=== PATIENT | male | born 1940 | race Caucasian/White ===

== ENCOUNTER 2017-02-05 15:59 | Outpatient (CLI) | payer MEDICARE, OTHER | END 2017-02-05 16:00 | disposition home or self-care (01) | DX: Z79.899 Other long term (current) drug therapy (principal); K62.5 Hemorrhage of anus and rectum; H91.90 Unspecified hearing loss, unspecified ear; J30.2 Other seasonal allergic rhinitis; J44.9 Chronic obstructive pulmonary disease, unspecified; G47.33 Obstructive sleep apnea (adult) (pediatric); I25.10 Atherosclerotic heart disease of native coronary artery without angina pectoris; N40.0 Benign prostatic hyperplasia without lower urinary tract symptoms; E11.9 Type 2 diabetes mellitus without complications; E29.1 Testicular hypofunction; D64.9 Anemia, unspecified; F32.9 Major depressive disorder, single episode, unspecified ==

== ENCOUNTER 2017-04-30 14:51 | Outpatient (CLI) | payer MEDICARE, OTHER | END 2017-04-30 14:52 | disposition critical access hospital (66) | LOC: EMS 14:51 | PROVIDERS: ATTEND Surgery | DX: R53.1 Weakness (principal); R05 Cough | CPT/HCPCS: A0425; A0427 ==

== ENCOUNTER 2017-04-30 15:35 | Inpatient (IN) | payer MEDICARE, OTHER ==
--- NOTE | 2017-04-30 15:44 | ED Physician Documentation ---
PD HPI URI - Stated complaint Stated Complaint: BRONGHITIS - Chief complaint Chief Complaint: Resp - History obtained from History obtained from: Patient - History of Present Illness Timing - onset: Today (he has had cough with some wheezing and dyspnea for 2-3 weeks. Just finished Augmentin for 15 days. Had onset of some diarrhea just today. Had Prednisone for 3 days initially. Using nebulized albuterol and Pulmacort just the past 2 weeks (new meds for him, was just on Advair prior). Was moderately improved but still some cough. Now this morning feeling weaker, dyspnea, lightheaded.) Timing duration: Days (has been ill with cough and wheeze for over 2 weeks, with some improvement on meds/nebs but now increased cough again a day after abx done. Also with some diarrhea today. Feeling much worse today with general fatigue; no chest pain.) Timing details: Abrupt onset (felt much worse today, with cough worse too.), Still present Associated symptoms: Chills, Nasal congestion, Productive cough, Dyspnea, Bilateral edema. No: Fever, Sore throat, NVD Contributing factors: COPD / asthma. No: Sick contact, Travel, Immunocompromised Similar symptoms before: Diagnosis (bronchitis (no hisotry of atrial fib/flutter , though).) Recently seen: Clinic (2 weeks ago for bronchitis with wheezing.) Review of Systems Constitutional: reports: Chills, Myalgias. denies: Fever Nose: reports: Congestion. denies: Rhinorrhea / runny nose Throat: denies: Sore throat Cardiac: reports: Pedal edema. denies: Chest pain / pressure, Palpitations, Calf pain Respiratory: reports: Dyspnea, Cough, Wheezing GI: denies: Abdominal Pain, Nausea, Vomiting, Diarrhea : denies: Dysuria, Frequency Neurologic: reports: Generalized weakness. denies: Focal weakness, Numbness, Near syncope, Altered mental status, Headache Endocrine: denies: Weight loss, Easy bruising / bleeding Immunocompromised: denies: Immunocompromised PD PAST MEDICAL HISTORY - Past Medical History Cardiovascular: Hypertension, High cholesterol, Coronary artery disease, Angina Respiratory: Shortness of breath, Sleep apnea, Other Neuro: TIA Endocrine/Autoimmune: Type 2 diabetes GI: GERD, GI bleed : Benign prostate hypertrophy, Incontinence, Frequency HEENT: Macular degeneration, Chronic hearing loss Psych: None Musculoskeletal: Osteoarthritis, Chronic back pain, Other Derm: Eczema - Past Surgical History Past Surgical History: Yes Ortho: Spine surgery Cardiovascular: CABG HEENT: Cataracts Derm: Skin cancer surgery - Present Medications Home Medications: Ambulatory Orders Medication Instructions Recorded Confirmed Clopidogrel [Plavix] 75 mg ORAL DAILY 09/09/13 04/30/17 Doxazosin [Cardura] 12 mg PO HS 09/09/13 04/30/17 Ferrous Sulfate [Iron Supplement] 325 mg PO DAILY 09/09/13 04/30/17 Finasteride 5 mg PO DAILY 09/09/13 04/30/17 Insulin 70/30 Human [NovoLIN] 57 units BID 09/09/13 04/30/17 Lisinopril 10 mg ORAL DAILY 09/09/13 04/30/17 Loratadine [Claritin] 10 mg HS 09/09/13 04/30/17 Metoprolol Succinate 50 mg PO BID 09/09/13 04/30/17 Omeprazole [PriLOSEC] 20 mg PO BID 09/09/13 04/30/17 Oxycodone HCl [Oxycontin] 10 mg PO BID 09/09/13 04/30/17 Pioglitazone [Actos] 45 mg PO DAILY 09/09/13 04/30/17 Pyridostigmine [place] [Mestinon] 60 mg PO TID 09/09/13 04/30/17 Simvastatin [Zocor] 40 mg PO QPM 09/09/13 04/30/17 Tocopheryl [Vitamin E] 800 units DAILY 09/09/13 04/30/17 Lidocaine Patch 5% [Lidoderm Patch] 1 each TOP DAILY 03/31/14 04/30/17 Sertraline HCl [Zoloft] 50 mg PO DAILY 03/31/14 04/30/17 Triamterene/Hdyrochlor 37.5/25 1 each PO DAILY 03/31/14 04/30/17 [Dyazide] Fluticasone/Salmeterol [Advair 0 mg BID 04/30/17 04/30/17 100-50 Diskus] oxyCODONE ER [OxyCONTIN] 10 mg PO QID PRN 04/30/17 04/30/17 - Allergies Allergies/Adverse Reactions: Allergies Allergy/AdvReac Type Severity Reaction Status Date / Time NSAIDS (Non-Steroidal AdvReac Intermediate GI Bleed Verified 04/30/17 15:42 Anti-Inflamma - Social History Does the pt smoke?: No Smoking Status: Former smoker Does the pt drink ETOH?: No Does the pt have substance abuse?: No - Family History Family history: reports: Non contributory - Immunizations Immunizations are current?: Yes - POLST Patient has POLST: Yes POLST Status: Full Code PD ED PE NORMAL - Vitals Vital signs reviewed: Yes - General General: Alert and oriented X 3, No acute distress, Well developed/nourished - HEENT HEENT: Atraumatic, Ears normal, Pharynx benign - Neck Neck: Supple, no meningeal sign, No adenopathy - Cardiac Cardiac: No murmur. No: RRR (fast rate 125-130 with some irregularity. No murmur nor rub. ) - Respiratory Respiratory: No: Clear bilaterally (diffuse wheezing, without retractions. Some coarse sounds left base. ) - Abdomen Abdomen: Normal bowel sounds, Soft, Non tender, Non distended, No organomegaly - Male Male : Deferred - Rectal Rectal: Deferred - Back Back: No CVA TTP - Derm Derm: Normal color, Warm and dry, No rash - Extremities Extremities: No tenderness to palpate, Normal ROM s pain, No calf tenderness / cord, Other (1+ edema in both legs.) - Neuro Neuro: Alert and oriented X 3, casket trimmer 2-12 intact, No motor deficit, No sensory deficit, Normal speech - Psych Psych: Normal mood, Normal affect Results - Vitals Vitals: Vital Signs - 24 hr 04/30/17 04/30/17 04/30/17 15:35 16:00 16:30 Temperature 37.4 C Heart Rate 115 H 125 H 128 H Respiratory 20 22 20 Rate Blood Pressure 126/71 120/62 131/73 H O2 Saturation 94 94 96 04/30/17 04/30/17 04/30/17 17:30 17:45 18:04 Temperature Heart Rate 130 H 129 H 114 H Respiratory 20 26 H 18 Rate Blood Pressure 113/65 113/68 124/60 O2 Saturation 95 93 95 Oxygen O2 Source [With Activity] Room air O2 Source Room air - Labs Labs: Laboratory Tests 04/30/17 04/30/17 04/30/17 17:15 17:15 17:15 WBC 15.1 H RBC 4.89 Hgb 14.6 Hct 45.4 MCV 92.7 MCH 29.9 MCHC 32.3 RDW 14.7 Plt Count 171 MPV 7.5 Neut # 14.1 H Lymph # 0.4 L [place] # 0.6 Eos # 0.0 Baso # 0.0 Absolute Nucleated RBC 0.02 Nucleated RBCs 0.1 Manual Slide Review Indicated Platelet Estimate NORMAL (130-450,000) RBC Morph Micro Appear NORMAL APPEARANCE Sodium 136 Potassium 4.3 Chloride 98 L Carbon Dioxide 24 Anion Gap 14.0 H BUN 24 H Creatinine 1.3 H Estimated GFR (MDRD) 54 L Glucose 246 H Lactic Acid Calcium 8.9 Magnesium 1.6 L Total Bilirubin 1.0 AST 29 ALT 24 Alkaline Phosphatase 59 Troponin I < 0.04 B-Natriuretic Peptide Total Protein 7.6 Albumin 4.4 Globulin 3.2 Albumin/Globulin Ratio 1.4 Lipase 23 04/30/17 04/30/17 17:15 17:15 WBC RBC Hgb Hct MCV MCH MCHC RDW Plt Count MPV Neut # Lymph # [place] # Eos # Baso # Absolute Nucleated RBC Nucleated RBCs Manual Slide Review Platelet Estimate RBC Morph Micro Appear Sodium Potassium Chloride Carbon Dioxide Anion Gap BUN Creatinine Estimated GFR (MDRD) Glucose Lactic Acid 2.5 H Calcium Magnesium Total Bilirubin AST ALT Alkaline Phosphatase Troponin I B-Natriuretic Peptide 23 Total Protein Albumin Globulin Albumin/Globulin Ratio Lipase PD MEDICAL DECISION MAKING - ED course Complexity details: considered differential (heart rate slows to about 100-105 with Metoprolol. Given IV fluids and neb treatment. Has been on Augmentin and has symptoms bronchitis, and now infiltrate on CXR, so will given Levaquin. He is appearing ill and has new atrial fib with fast rate too. ), d/w patient, d/w retirement sales consultant ([employer] - hospitalist) Departure - Departure Disposition: 66 [facility] DC/Xfer Clinical Impression: Atrial fibrillation with RVR Pneumonia Qualifiers: Pneumonia type: due to unspecified organism Laterality: right Lung location: lower lobe of lung Qualified Code(s): J18.1 - Lobar pneumonia, unspecified organism Dyspnea Qualifiers: Dyspnea type: shortness of breath Qualified Code(s): R06.02 - Shortness of breath Condition: Stable Record reviewed to determine appropriate education?: Yes Discharge Date/Time: 04/30/17 19:10
[2017-04-30] MEDS ORDERED: SODIUM CHLORIDE 0.9% 500 ML IV ONE (16:10)
[2017-04-30] MEDS ORDERED: IPRATROPIUM/ALBUTEROL 3 ML NEB INH STA (16:10)
[2017-04-30] MEDS ORDERED: IPRATROPIUM/ALBUTEROL 3 ML NEB INH ONE (16:21)
[2017-04-30] MEDS ORDERED: METOPROLOL 5 MG/5 ML VIAL IVP STA ×2 (17:03→18:02)
[2017-04-30 17:33] LABS: BASOPHILS % (AUTO) 0.2 %; EOSINOPHILS % (AUTO) 0.2 %; HCT - HEMATOCRIT 45.4 % (42.0-52.0); HGB - HEMOGLOBIN 14.6 g/dL (14.0-18.0); LYMPHOCYTES # (AUTO) 0.4 10^3/uL (1.5-3.5); LYMPHOCYTES % (AUTO) 2.6 %; MEAN CORPUSCULAR HEMOGLOBIN 29.9 pg (27.0-31.0); MEAN CORPUSCULAR HGB CONC 32.3 g/dL (32.0-36.0); MEAN CORPUSCULAR VOLUME 92.7 fL (80.0-94.0); MEAN PLATELET VOLUME 7.5 fL (7.4-11.4); MONOCYTES # (AUTO) 0.6 10^3/uL (0.0-1.0); MONOCYTES % (AUTO) 3.8 %; NEUTROPHILS # (AUTO) 14.1 10^3/uL (1.5-6.6); NEUTROPHILS % (AUTO) 93.2 %; NUCLEATED RED BLOOD CELLS AUTO 0.1 /100WBC; RED BLOOD COUNT 4.89 10^6/uL (4.70-6.10); RED CELL DISTRIBUTION WIDTH 14.7 % (12.0-15.0); UNCORRECTED WHITE BLOOD COUNT 15.1 x10^3/uL; WHITE BLOOD COUNT 15.1 x10^3/uL (4.8-10.8)
[2017-04-30] MEDS ORDERED: METOPROLOL 5 MG/5 ML VIAL IVP ONE ×2 (17:36→18:12)
[2017-04-30 17:40] LABS: ALBUMIN/GLOBULIN RATIO 1.4 (1.0-2.2); CALCIUM 8.9 mg/dL (8.5-10.3); CREATININE 1.3 mg/dL (0.6-1.2); MAGNESIUM 1.6 mg/dL (1.7-2.8); POTASSIUM 4.3 mmol/L (3.5-5.0); TOTAL PROTEIN 7.6 g/dL (6.7-8.2)
--- NOTE | 2017-04-30 17:50 | XRAY Preliminary Report ---
Exam: XR Chest 2 View PA/LAT IMPRESSION: 1. Small right posterior lung base infiltrate. 2. Mild cardiomegaly. [facility] SITE ID: [id number]
--- NOTE | 2017-04-30 17:55 | XRAY Report ---
EXAM: CHEST RADIOGRAPHY EXAM DATE: 04/30/2017 05:34 PM. CLINICAL HISTORY: Cough worse, after 2 weeks abx. COMPARISON: 08/21/2016. TECHNIQUE: 2 views. FINDINGS: Lungs/Pleura: New subsegmental airspace infiltrate posterior basilar segment right lower lobe.. No pl eural effusion. No pneumothorax. Normal volumes. Mediastinum: Remote sternotomy, CABG. Heart remains mildly enlarged. No adenopathy. Other: None. IMPRESSION: 1. Small right posterior lung base infiltrate. 2. Mild cardiomegaly. [facility] Referring Provider Line: [phone] SITE ID: [id number]
[2017-04-30 18:00] LABS: PLATELET ESTIMATE, MANUAL NORMAL (130-450,000) (NORMAL)
[2017-04-30] MEDS ORDERED: IPRATROPIUM 0.2 MG/ML NEB INH PRN (18:14)
[2017-04-30] MEDS ORDERED: MAGNESIUM SULFATE 2 GRAM 50 ML IV SCH (19:00)
[2017-04-30] MEDS ORDERED: oxyCODONE ER 10 MG TABLET PO PRN (19:13)
[2017-04-30 19:28] LABS: HEMOGLOBIN A1C 1.01 g/dL
[2017-04-30] MEDS: IPRATROPIUM/ALBUTEROL 3 ML NEB INH SCH (19:45)
[2017-04-30] MEDS: DOXAZOSIN 4 MG TABLET PO SCH ×2 (20:16→21:04)
--- NOTE | 2017-04-30 20:19 | HISTORY & PHYSICAL EXAMINATION ---
DATE OF ADMISSION: 04/30/2017 PRIMARY CARE PROVIDER: Dr. Stacey Thao. CHIEF COMPLAINT: Weakness, shortness of breath, cough, general aches and malaise for 2 weeks. HISTORY OF PRESENT ILLNESS: The patient is a 76-year-old morbidly obese gentleman with longstanding h istory of diabetes, CHF, myasthenia gravis, GI bleed, hyperlipidemia, hypertension, CHF, and prior TI As that presented to the ER with a complaint of 2 weeks of general malaise, cough, possible fever, we akness and shortness of breath. The patient states that he has been feeling generally poor over the l ast couple days, more tired and lethargic than normal. His blood sugars have been slightly elevated a nd he has had a significant cough that has produced a good amount of sputum over the last several day s. Today, he states the symptoms became worse. He is not sure whether he has a fever, but he has had some chills and some shakes. He has not had much of an appetite. He has had pneumonia in the past. He thinks that may be what he has again. He has had shortness of breath with exertion. So he came to th e ER for further evaluation. While in the ER, he was found to have an elevated white count at 15.1 wi th possible left shift. Also, lactic acid of 2.5, magnesium 1.6, and acute kidney injury with mild de hydration. The patient was negative for first troponin and BNP was at 23 and not in congestive heart failure at this time. Chest x-ray did report possible bibasilar infiltrate in the posterior segment o f the right lower lobe. No pleural effusion, pneumothorax. The patient will be admitted inpatient for sepsis as he does meet criteria with elevated heart rate 115 and respirations at 26, and temperature 37.4 temporal. The patient was started on Rocephin and azithromycin while in the ER. ALLERGIES: NO KNOWN ALLERGIES EXCEPT HE HAS AN ADVERSE REACTION TO NSAIDS. HOME MEDICATIONS: 1. Actos. 2. Advair. 3. Cardura. 4. Claritin. 5. Dyazide. 6. Finasteride. 7. Iron supplement. 8. Lidocaine patch. 9. Lisinopril. 10. Mestinon. 11. Metoprolol succinate. 12. Novolin 70/30, 57 units b.i.d.. 13. OxyContin. 14. Plavix. 15. Prilosec. 16. Vitamin D.. 17. Zocor 18. Zoloft. PAST MEDICAL HISTORY: Significant for hypertension, diabetes, congestive heart failure, unspecified, myasthenia gravis, BPH, GERD, chronic back pain with osteoarthritis, TIAs and atherosclerotic heart d isease with CABG x3 vessel bypass. PAST SURGICAL HISTORY: Includes CABG. SOCIAL HISTORY: The patient is to his , he was a former smoker and does not drink any alc ohol and denies illicit drug usage. FAMILY HISTORY: Both parents were obese, they did have significant hypertension and diabetes. REVIEW OF SYSTEMS: Ten systems have been reviewed and is negative with exception as discussed in the HPI prior. He is negative for chest pain, numbness to extremities. He is positive for fever, chills, sweats, general malaise and weakness. PHYSICAL EXAMINATION: VITAL SIGNS: Temperature is 37.4, pulse is 115, blood pressure is 134/68, respirations 26, pulse oxim etry is 92% on room air. GENERAL: The patient is obese, pleasant, in no acute distress. EYES: Pupils equal, round and react to light and accommodation. Conjunctivae and sclerae are nonicter ic, not injected. ENT: Nares are patent, mild nasal discharge. Mucous membranes are moist. Trachea is midline. NECK: Supple. No thyromegaly. RESPIRATORY: Expiratory slight wheezes mid to lower lobes. No retractions, nasal flaring, or increase d work of breathing. CARDIOVASCULAR: Regular rate atrial fibrillation with no murmurs, gallops or rubs. Normal PMI. No JVD . GASTROINTESTINAL: Abdomen is obese, soft, nontender, bowel sounds are noted. No hepatosplenomegaly. MUSCULOSKELETAL: Extremities: The patient has noted foot drop to left foot. No cyanosis. Pulses are p alpable to upper and lower extremities. NEUROLOGIC: The patient is alert, GCS 15. Cranial nerves 2 through 7 grossly intact. He does have lef t-sided facial weakness with myasthenia gravis. SKIN: Warm, dry, intact. Normal turgor. No evidence of rash, lesions, or cellulitis. HEMATOLOGIC: No active bleeding. The patient is hemodynamically stable. LYMPHATICS: No cervical, axillary, supraclavicular lymphadenopathy is noted. GENITOURINARY: No CVA tenderness. No masses palpated. No bladder distention. LABORATORY AND DIAGNOSTIC DATA: I personally reviewed all laboratory and diagnostic data in the medic al records for 04/30/2017 and results are as follows: LABORATORY: Chloride 98, sodium 136, potassium 4.3, anion gap 14, BUN 24, creatinine 1.3, glucose 246 . Lactic acid 2.4, magnesium 1.6. BNP is 23.0, 0.04 troponin, WBC is 15.1, neutrophil percentage 14.1 , lymphocytes 0.4, hemoglobin is 14.6. DIAGNOSTICS: CHEST X-ray shows bibasilar left lower lobe possible infiltrate. EKG shows sinus tachycardia, rate 115, no signs of ischemia or infarct. ASSESSMENT: 1. Acute febrile illness with sepsis secondary to left lower lobe community-acquired pneumonia, unkno wn causal organism. 2. Morbid obesity with BMI greater than 45. 3. Insulin-dependent diabetes mellitus type 2 with multiple comorbidities and chronic kidney disease, stage III. 4. Atherosclerotic heart disease of [place] coronary artery with coronary artery bypass grafting. 5. Hypertensive heart disease with congestive heart failure, unspecified ejection fraction. 6. Myasthenia gravis with chronic back pain to lumbosacral region. 7. Chronic anemia, probably iron deficiency. 8. Nicotine dependence, cigarettes, in remission. PLAN: 1. Admit the patient inpatient. Sepsis workup and protocol. The patient was started on Rocephin in e ER and will continue and add azithromycin. 2. Blood cultures pending. 3. Sputum culture pending. 4. Respiratory therapy support with DuoNeb treatments, Xopenex if heart rate greater than 120. Supple mental oxygen 2 liters nasal cannula to keep saturating greater than 92%. 5. Diabetes, managed with home insulin dosage and sliding scale insulin, diabetic diet and hemoglobin A1c requested. 6. Continue the patient on home medication for hypertension including metoprolol. We will hold lisino pril due to the acute kidney injury. 7. Continue Zocor. Lipid profile has been requested. 8. Continue omeprazole proton pump inhibitor for gastrointestinal reflux disease. 9. Continue on ferrous sulfate 325 p.o. daily. Iron studies requested. 10. Continue multivitamin. 11. Continue on pyridostigmine 60 mg 2 times a day for myasthenia gravis. 12. Continue on Zoloft for depression and continue on Plavix for status post CABG and continue lidoca ine patches for pain. Continue on OxyContin for chronic back pain and continue with Actos for diabete s. 13. Deep venous thrombosis prophylaxis with SCDs and Lovenox. 14. CODE STATUS: THE PATIENT IS A FULL CODE STATUS. Time spent on evaluation at admission and assessment with the patient was 45 minutes. The patient has been admitted as inpatient, he is high risk for worsening comorbidities, he will require at least 2 midnight stay and require IV medications with high risk for toxicity. Additional diagnostics and code status was addressed at bedside. JOB #: [id number] EXT JOB #:[id number]
[2017-04-30] MEDS: oxyCODONE ER 10 MG TABLET PO SCH (20:21)
[2017-04-30] MEDS ORDERED: SIMVASTATIN 40 MG PO SCH (21:00)
[2017-04-30] MEDS ORDERED: NON FORMULARY MED (Omeprazole [Prilosec] 20 MG) PO SCH (21:00)
[2017-04-30] MEDS ORDERED: INSULIN 70/30 HUMAN 100 UNIT/1 ML 10 ML MDV SUBQ SCH (21:00)
[2017-04-30] MEDS: PANTOPRAZOLE 40 MG TABLET PO SCH (21:34)
[2017-04-30] MEDS: METOPROLOL SUCCINATE 50 MG TABLET PO SCH (21:34)
[2017-04-30] MEDS: INSULIN 70/30 HUMAN 100 UNIT/1 ML 10 ML MDV SUBQ SCH (22:01)
[2017-04-30] MEDS: INSULIN ASPART 300 UNIT/3 ML PEN SUBQ SCH (22:01)
[2017-04-30] MEDS: PYRIDOSTIGMINE BROMIDE 60 MG TABLET PO SCH (22:02)
[2017-05-01] MEDS ORDERED: FLUTICASONE NASAL SPRAY NAS SCH
[2017-05-01] MEDS: oxyCODONE 5 MG TABLET PO PRN ×4 (00:21→14:44)
[2017-05-01] MEDS: FLUTICASONE NASAL SPRAY NAS SCH ×3 (04:21→21:49)
[2017-05-01 06:03] LABS: BASOPHILS % (AUTO) 0.2 %; EOSINOPHILS % (AUTO) 0.2 %; HCT - HEMATOCRIT 39.5 % (42.0-52.0); HGB - HEMOGLOBIN 13.1 g/dL (14.0-18.0); LYMPHOCYTES # (AUTO) 1.1 10^3/uL (1.5-3.5); LYMPHOCYTES % (AUTO) 10.7 %; MEAN CORPUSCULAR HEMOGLOBIN 30.7 pg (27.0-31.0); MEAN CORPUSCULAR HGB CONC 33.2 g/dL (32.0-36.0); MEAN CORPUSCULAR VOLUME 92.3 fL (80.0-94.0); MEAN PLATELET VOLUME 7.4 fL (7.4-11.4); MONOCYTES # (AUTO) 0.9 10^3/uL (0.0-1.0); MONOCYTES % (AUTO) 9.6 %; NEUTROPHILS # (AUTO) 7.8 10^3/uL (1.5-6.6); NEUTROPHILS % (AUTO) 79.3 %; NUCLEATED RED BLOOD CELLS AUTO 0.1 /100WBC; RED BLOOD COUNT 4.28 10^6/uL (4.70-6.10); RED CELL DISTRIBUTION WIDTH 14.8 % (12.0-15.0); UNCORRECTED WHITE BLOOD COUNT 9.8 x10^3/uL; WHITE BLOOD COUNT 9.8 x10^3/uL (4.8-10.8)
[2017-05-01 06:11] LABS: CALCIUM 8.3 mg/dL (8.5-10.3); CREATININE 1.4 mg/dL (0.6-1.2); PHOSPHORUS 2.2 mg/dL (2.5-4.6); POTASSIUM 3.6 mmol/L (3.5-5.0)
[2017-05-01] MEDS: PYRIDOSTIGMINE BROMIDE 60 MG TABLET PO SCH ×3 (07:19→22:17)
[2017-05-01] MEDS: INSULIN ASPART 300 UNIT/3 ML PEN SUBQ SCH ×4 (07:53→21:49)
[2017-05-01] MEDS: INSULIN 70/30 HUMAN 100 UNIT/1 ML 10 ML MDV SUBQ SCH ×2 (08:02→21:48)
[2017-05-01] MEDS: PANTOPRAZOLE 40 MG TABLET PO SCH ×2 (08:35→21:47)
[2017-05-01] MEDS: SERTRALINE 50 MG TABLET PO SCH (08:35)
[2017-05-01] MEDS: FINASTERIDE 5 MG TABLET PO SCH (08:36)
[2017-05-01] MEDS: FERROUS SULFATE 325 MG TABLET PO SCH (08:36)
[2017-05-01] MEDS: METOPROLOL SUCCINATE 50 MG TABLET PO SCH ×2 (08:36→21:47)
[2017-05-01] MEDS: oxyCODONE ER 10 MG TABLET PO SCH ×2 (08:36→21:43)
[2017-05-01] MEDS: LIDOCAINE PATCH 5% TOP SCH (08:39)
[2017-05-01] MEDS: ATORVASTATIN 10 MG TABLET PO SCH (08:39)
[2017-05-01] MEDS: SACCHAROMYCES BOULARDII 250 MG CAPSULE PO SCH ×2 (08:40→17:29)
[2017-05-01] MEDS: ENOXAPARIN 40 MG/0.4 ML SYRINGE SUBQ SCH (08:40)
--- NOTE | 2017-05-01 08:42 | PROVIDER PROGRESS NOTE ---
Assessment/Plan - Problem List (1) Sepsis due to other etiology Assessment/Plan: acute. patient WBC improving. he is receiving levaquin IV an received Rocephin and azithromycin IV. discontinued azithromycin.He has been afebrile today. His oxygen level is stable. continue with RT treatments and encourage ambulation with nursing. monitor for WBC changes. blood cultures pending. sputum culture pending. (2) Acute kidney injury superimposed on CKD Assessment/Plan: ongoing. continue with IVF NS and monitor for edema and crackle in the lungs. monitor electrolytes and kidney function with daily labs. avoid nephrotoxic medications. (3) Low blood magnesium level Assessment/Plan: resolving. replete magnesium and monitor level in daily labs (4) Low serum phosphorus for age Assessment/Plan: acute. added neutraphos oral three time daily and recheck phosphorus level with daily labs (5) Insulin dependent diabetes mellitus with complications Assessment/Plan: chronic. continue on diabetic diet, lantus, sliding scale insulin and A1C ordered. (6) Atrial fibrillation with RVR Assessment/Plan: chronic. stable. teleemetry and continue on blood pressure medications for AFib home dosages (7) Obstructive sleep apnea hypopnea, severe Assessment/Plan: chronic. continue with CPAP and RT support as needed (8) Morbid (severe) obesity due to excess calories Assessment/Plan: chronic. continue with nutrition support, low calorie diabetic diet and ambulation - Current Meds Current Meds: Current Medications Generic Name Dose Route Start Last Admin Trade Name Freq PRN Reason Stop Dose Admin Albuterol/Ipratropium 3 ml 04/30/17 19:00 04/30/17 19:45 Duoneb INH 05/01/17 18:59 3 ml RTQID SHOAIB Administration Doxazosin Mesylate 12 mg 04/30/17 19:00 04/30/17 21:04 Cardura PO Not Given HS SHOAIB Fluticasone Propionate 1 sprays 05/01/17 04:15 05/01/17 04:21 Flonase NIMA 1 spray BID SHOAIB Administration Insulin Aspart 1 - 9 unit 04/30/17 21:00 05/01/17 07:53 Novolog SUBQ Not Given 0800,1200,1700,2100 [facility] Protocol Insulin Human Isoph/Insulin Regular 57 unit 04/30/17 21:00 05/01/17 08:02 Novolin SUBQ 57 unit BID SHOAIB Administration Metoprolol Succinate 50 mg 04/30/17 21:00 04/30/17 21:34 Toprol Xl PO 50 mg BID SHOAIB Administration Oxycodone HCl 10 mg 04/30/17 21:00 04/30/17 20:21 Oxycontin PO 10 mg BID SHOAIB Administration Oxycodone HCl 10 mg 04/30/17 20:07 05/01/17 03:58 Roxicodone PO 10 mg QID PRN Administration PAIN Pantoprazole Sodium 40 mg 04/30/17 21:00 04/30/17 21:34 Protonix PO 40 mg BID SHOAIB Administration Pyridostigmine Velva 60 mg 04/30/17 22:00 05/01/17 07:19 Mestinon PO Not Given TID SHAOIB - Lab Result Lab results reviewed: Yes Fish Bone Diagrams: 05/01/17 05:20 05/01/17 05:20 Other Lab Results: Abnormal Lab Results 04/30/17 04/30/17 04/30/17 17:15 17:15 17:15 WBC 15.1 x10^3/uL H x10^3/uL (4.8-10.8) RBC Hgb Hct Neut # 14.1 10^3/uL H 10^3/uL (1.5-6.6) Lymph # 0.4 10^3/uL L 10^3/uL (1.5-3.5) Chloride 98 mmol/L L mmol/L (101-111) Anion Gap 14.0 H (6-13) BUN 24 mg/dL H mg/dL (6-20) Creatinine 1.3 mg/dL H mg/dL (0.6-1.2) Estimated GFR (MDRD) 54 L (>89) Glucose 246 mg/dL H mg/dL (70-100) Glycated Hemoglobin Estim Average Glucose Lactic Acid 2.5 mmol/L H mmol/L (0.5-2.2) Calcium Phosphorus Magnesium 1.6 mg/dL L mg/dL (1.7-2.8) C-Reactive Protein 04/30/17 04/30/17 04/30/17 18:29 19:40 19:40 WBC RBC Hgb Hct Neut # Lymph # Chloride Anion Gap BUN Creatinine Estimated GFR (MDRD) Glucose Glycated Hemoglobin 8.3 % H % (4.6-6.2) Estim Average Glucose 192 H (70-100) Lactic Acid Calcium Phosphorus 2.4 mg/dL L mg/dL (2.5-4.6) Magnesium C-Reactive Protein 2.4 mg/dL H mg/dL (0-1.0) 05/01/17 05/01/17 05:20 05:20 WBC RBC 4.28 10^6/uL L 10^6/uL (4.70-6.10) Hgb 13.1 g/dL L g/dL (14.0-18.0) Hct 39.5 % L % (42.0-52.0) Neut # 7.8 10^3/uL H 10^3/uL (1.5-6.6) Lymph # 1.1 10^3/uL L 10^3/uL (1.5-3.5) Chloride 100 mmol/L L mmol/L (101-111) Anion Gap BUN 27 mg/dL H mg/dL (6-20) Creatinine 1.4 mg/dL H mg/dL (0.6-1.2) Estimated GFR (MDRD) 49 L (>89) Glucose Glycated Hemoglobin Estim Average Glucose Lactic Acid Calcium 8.3 mg/dL L mg/dL (8.5-10.3) Phosphorus 2.2 mg/dL L mg/dL (2.5-4.6) Magnesium C-Reactive Protein - EKG Results EKG Interpreted Independently: No - Diagnostic Imaging Results Diagnostic Imaging Results: positive: Prelim report reviewed - Additional Planning Condition/Complexity: Improved (Patient will need additional nights between 24- 48 hours since he is needed medications IV and is at high risk for worssening morbidities and risk for toxicity. He will need cardiac monitoring and code status addressed at bedside) My Orders: My Active Orders 04/30/17 18:11 Blood Glucose Checks - Eating [RC] 0800,1200,1700,2100 Initiate Hypoglycemia Protocol [RC] .protocol Nutrition Consult [CONS] Routine 04/30/17 18:14 Albuterol 2.5 mg INH Q2HR PRN Ipratropium [Atrovent] 0.5 mg INH RTQ4H PRN 04/30/17 18:16 CUL, RESPIRATORY [RM] Routine 04/30/17 19:00 Doxazosin [Cardura] 12 mg PO HS Ipratropium/Albuterol [Duoneb] 3 ml INH RTQID 04/30/17 19:40 CULTURE, BLOOD (NOTE DRAW #) [RM] Routine 04/30/17 21:00 Insulin Aspart [NovoLOG] 1 - 9 unit SUBQ 0800,1200,1700,2100 Metoprolol Succinate [Toprol Xl] 50 mg PO BID Pantoprazole [Protonix] 40 mg PO BID oxyCODONE ER [OxyCONTIN] 10 mg PO BID 04/30/17 22:00 Pyridostigmine Velva [Mestinon] 60 mg PO TID 04/30/17 23:27 Oxygen Therapy [RC] .PRN 04/30/17 23:33 RT [Home CPAP/BiPAP] [RC] .ONCE 05/01/17 08:00 Saccharomyces Boulardii [Florastor] 250 mg PO BIDWM 05/01/17 08:40 MAGNESIUM [CHEM] Stat 05/01/17 09:00 Atorvastatin [Lipitor] 20 mg PO DAILY Clopidogrel [Plavix] 75 mg PO DAILY Ferrous Sulfate [Feosol] 325 mg PO DAILY Finasteride [Proscar] 5 mg PO DAILY Neutra-Phos [K-Phos Neutral] 250 mg PO TIDWM Sertraline [Zoloft] 50 mg PO DAILY cefTRIAXone [Rocephin] 2 gm Sodium Chloride 0.9% Minibag [Normal Saline 0.9% Minibag] 100 ml IV DAILY 05/01/17 10:00 Azithromycin Inj [Zithromax Inj] 500 mg Sodium Chloride 0.9% [Normal Saline 0.9%] 250 ml IV DAILY@1000 05/01/17 20:00 levoFLOXacin 750 MG/150 ML [Levaquin 750 mg/150 ml] 150 ml IV Q24H 05/02/17 05:00 BMP - BASIC METABOLIC PANEL [CHEM] DAILYLAB CBC - COMP BLD CT W/AUTO DIFF [HEME] DAILYLAB PHOSPHORUS [CHEM] DAILYLAB 05/03/17 05:00 BMP - BASIC METABOLIC PANEL [CHEM] DAILYLAB CBC - COMP BLD CT W/AUTO DIFF [HEME] DAILYLAB Consult/Specialty: OT, PT Plan Discussed with:: Patient, Case Management Time Spent: 31-60 minutes Subjective - Subjective Patient Reports: Resting Comfortably, Back Pain, Fatigue, Shortness of Breath Nursing Reports: Shortness of Breath (patient feeling weak this morning. up with nursing today. no nausea or vomiting today.no fever or chills better mood) Objective Vital Signs: Vital Signs - 24 hr 04/30/17 04/30/17 04/30/17 18:15 18:35 18:45 Temperature Heart Rate 124 H 108 H 113 H Heart Rate [ Brachial] Heart Rate [ Monitoring electrodes] Respiratory 22 20 22 Rate Blood Pressure 111/74 132/75 H Blood Pressure [Left Brachial artery] Blood Pressure [Left Radial artery] O2 Saturation 96 95 04/30/17 04/30/17 04/30/17 18:58 19:30 19:45 Temperature 36.7 C Heart Rate 130 H 115 H Heart Rate [ Brachial] Heart Rate [ 115 H Monitoring electrodes] Respiratory 22 16 18 Rate Blood Pressure 143/75 H Blood Pressure 129/81 H [Left Brachial artery] Blood Pressure [Left Radial artery] O2 Saturation 95 96 04/30/17 05/01/17 05/01/17 23:30 04:20 07:44 Temperature 36.7 C 36.8 C Heart Rate Heart Rate [ 127 H Brachial] Heart Rate [ 128 H 123 H Monitoring electrodes] Respiratory 18 18 Rate Blood Pressure Blood Pressure 106/61 108/68 [Left Brachial artery] Blood Pressure 121/80 [Left Radial artery] O2 Saturation 96 96 Oxygen O2 Source Room air I&O (Last 24 Hrs): Intake and Output Totals x24h 04/29/17 04/30/17 05/01/17 23:59 23:59 23:59 Intake Total 1000 1500 Balance 1000 1500 General: Alert, Oriented x3, Cooperative, No acute distress HEENT: PERRLA Neck: Supple, No JVD, No thyromegaly Lymphatic: no adenopathy Neuro: Alert, CN 2-12 Grossly Intact, Oriented Times 3 Cardiovascular: Regular rate (AFib rhythym), Normal S1, Normal S2 Respiratory: Chest non-tender, No respiratory distress, Wheezes Abdomen: Normal bowel sounds, Soft, Other (obese) Rectal: Stool - Heme NEG Extremities: No clubbing, No cyanosis, Other (edema to bilateral lower extremities) Skin: No rashes, No breakdown, No significant lesion - Results Results: Laboratory Results WBC 9.8 x10^3/uL (4.8-10.8) 05/01/17 05:20 RBC 4.28 10^6/uL (4.70-6.10) L 05/01/17 05:20 Hgb 13.1 g/dL (14.0-18.0) L 05/01/17 05:20 Hct 39.5 % (42.0-52.0) L 05/01/17 05:20 MCV 92.3 fL (80.0-94.0) 05/01/17 05:20 MCH 30.7 pg (27.0-31.0) 05/01/17 05:20 MCHC 33.2 g/dL (32.0-36.0) 05/01/17 05:20 RDW 14.8 % (12.0-15.0) 05/01/17 05:20 Plt Count 159 10^3/uL (130-450) 05/01/17 05:20 MPV 7.4 fL (7.4-11.4) 05/01/17 05:20 Neut # 7.8 10^3/uL (1.5-6.6) H 05/01/17 05:20 Lymph # 1.1 10^3/uL (1.5-3.5) L 05/01/17 05:20 [place] # 0.9 10^3/uL (0.0-1.0) 05/01/17 05:20 Eos # 0.0 10^3/uL (0.0-0.7) 05/01/17 05:20 Baso # 0.0 10^3/uL (0.0-0.1) 05/01/17 05:20 Absolute Nucleated RBC 0.01 x10^3/uL 05/01/17 05:20 Nucleated RBCs 0.1 /100WBC 05/01/17 05:20 Manual Slide Review Indicated 04/30/17 17:15 Platelet Estimate NORMAL (130-450,000) (NORMAL) 04/30/17 17:15 RBC Morph Micro Appear NORMAL APPEARANCE (NORMAL) 04/30/17 17:15 Sodium 136 mmol/L (135-145) 05/01/17 05:20 Potassium 3.6 mmol/L (3.5-5.0) 05/01/17 05:20 Chloride 100 mmol/L (101-111) L 05/01/17 05:20 Carbon Dioxide 25 mmol/L (21-32) 05/01/17 05:20 Anion Gap 11.0 (6-13) 05/01/17 05:20 BUN 27 mg/dL (6-20) H 05/01/17 05:20 Creatinine 1.4 mg/dL (0.6-1.2) H 05/01/17 05:20 Estimated GFR (MDRD) 49 (>89) L 05/01/17 05:20 Glucose 83 mg/dL (70-100) 05/01/17 05:20 Glycated Hemoglobin 8.3 % (4.6-6.2) H 04/30/17 18:29 Estim Average Glucose 192 (70-100) H 04/30/17 18:29 Lactic Acid 2.5 mmol/L (0.5-2.2) H 04/30/17 17:15 Calcium 8.3 mg/dL (8.5-10.3) L 05/01/17 05:20 Phosphorus 2.2 mg/dL (2.5-4.6) L 05/01/17 05:20 Magnesium 1.6 mg/dL (1.7-2.8) L 04/30/17 17:15 Total Bilirubin 1.0 mg/dL (0.2-1.0) 04/30/17 17:15 AST 29 IU/L (10-42) 04/30/17 17:15 ALT 24 IU/L (10-60) 04/30/17 17:15 Alkaline Phosphatase 59 IU/L (42-121) 04/30/17 17:15 Total Creatine Kinase 184 IU/L (22-269) 05/01/17 00:30 Troponin I < 0.04 ng/mL (<0.49) 05/01/17 00:30 C-Reactive Protein 2.4 mg/dL (0-1.0) H 04/30/17 19:40 B-Natriuretic Peptide 23 pg/mL (5-100) 04/30/17 17:15 Total Protein 7.6 g/dL (6.7-8.2) 04/30/17 17:15 Albumin 3.8 g/dL (3.2-5.5) 05/01/17 05:20 Globulin 3.2 g/dL (2.1-4.2) 04/30/17 17:15 Albumin/Globulin Ratio 1.4 (1.0-2.2) 04/30/17 17:15 Lipase 23 U/L (22-51) 04/30/17 17:15 Influenza A (Rapid) Negative (Negative) 04/30/17 22:10 Influenza B (Rapid) Negative (Negative) 04/30/17 22:10 Influenza Types A,B Ag - 04/30/17 22:10 - Procedures Procedures: Procedures OTHER ENDOSCOPY OF SM INTEST (09/09/13) PACKED CELL TRANSFUSION (09/09/13) SUTURE ENTROPION REPAIR (01/17/15)
[2017-05-01] MEDS: cefTRIAXone 2 GM in SODIUM CHLORIDE 0.9% MINIBAG 100 ML IV SCH (08:43)
[2017-05-01] MEDS: CLOPIDOGREL 75 MG TABLET PO SCH (08:48)
[2017-05-01] MEDS ORDERED: LIDOCAINE PATCH 5% TOP SCH (09:00)
[2017-05-01] MEDS: SODIUM CHLORIDE 0.9% 1,000 ML IV SCH ×2 (09:00→21:51)
[2017-05-01] MEDS: IPRATROPIUM/ALBUTEROL 3 ML NEB INH SCH ×3 (09:45→14:15)
[2017-05-01] MEDS ORDERED: AZITHROMYCIN INJ 500 MG in SODIUM CHLORIDE 0.9% 250 ML IV SCH (10:00)
[2017-05-01] MEDS: NEUTRA-PHOS 250 MG TABLET PO SCH ×3 (10:14→17:29)
[2017-05-01] MEDS: DOXAZOSIN 4 MG TABLET PO SCH (21:46)
[2017-05-02] MEDS ORDERED: METOPROLOL 5 MG/5 ML VIAL IVP STA (01:37)
[2017-05-02] MEDS ORDERED: METOPROLOL 5 MG/5 ML VIAL IVP ONE (01:45)
[2017-05-02] MEDS ORDERED: METOPROLOL 5 MG/5 ML VIAL IVP SCH ×2 (02:00→23:29)
[2017-05-02] MEDS: PYRIDOSTIGMINE BROMIDE 60 MG TABLET PO SCH ×3 (05:50→21:58)
[2017-05-02 06:09] LABS: BASOPHILS % (AUTO) 0.3 %; EOSINOPHILS # (AUTO) 0.1 10^3/uL (0.0-0.7); EOSINOPHILS % (AUTO) 0.9 %; HCT - HEMATOCRIT 39.8 % (42.0-52.0); HGB - HEMOGLOBIN 13.1 g/dL (14.0-18.0); LYMPHOCYTES % (AUTO) 14.1 %; MEAN CORPUSCULAR HEMOGLOBIN 30.4 pg (27.0-31.0); MEAN CORPUSCULAR HGB CONC 32.8 g/dL (32.0-36.0); MEAN CORPUSCULAR VOLUME 92.5 fL (80.0-94.0); MEAN PLATELET VOLUME 7.3 fL (7.4-11.4); MONOCYTES # (AUTO) 0.8 10^3/uL (0.0-1.0); MONOCYTES % (AUTO) 11.4 %; NEUTROPHILS # (AUTO) 5.4 10^3/uL (1.5-6.6); NEUTROPHILS % (AUTO) 73.3 %; RED CELL DISTRIBUTION WIDTH 14.8 % (12.0-15.0); UNCORRECTED WHITE BLOOD COUNT 7.3 x10^3/uL; WHITE BLOOD COUNT 7.3 x10^3/uL (4.8-10.8)
[2017-05-02 06:32] LABS: CALCIUM 8.1 mg/dL (8.5-10.3); CREATININE 1.1 mg/dL (0.6-1.2); PHOSPHORUS 4.2 mg/dL (2.5-4.6); POTASSIUM 3.5 mmol/L (3.5-5.0)
[2017-05-02] MEDS: INSULIN ASPART 300 UNIT/3 ML PEN SUBQ SCH ×4 (08:39→22:00)
[2017-05-02] MEDS: SODIUM CHLORIDE 0.9% 1,000 ML IV SCH ×2 (09:09→23:54)
[2017-05-02] MEDS: INSULIN 70/30 HUMAN 100 UNIT/1 ML 10 ML MDV SUBQ SCH ×2 (09:10→21:59)
[2017-05-02] MEDS: cefTRIAXone 2 GM in SODIUM CHLORIDE 0.9% MINIBAG 100 ML IV SCH (09:10)
[2017-05-02] MEDS: ENOXAPARIN 40 MG/0.4 ML SYRINGE SUBQ SCH (09:10)
[2017-05-02] MEDS: ATORVASTATIN 10 MG TABLET PO SCH (09:11)
[2017-05-02] MEDS: METOPROLOL SUCCINATE 50 MG TABLET PO SCH ×2 (09:11→21:55)
[2017-05-02] MEDS: FERROUS SULFATE 325 MG TABLET PO SCH (09:11)
[2017-05-02] MEDS: SACCHAROMYCES BOULARDII 250 MG CAPSULE PO SCH ×2 (09:12→16:47)
[2017-05-02] MEDS: SERTRALINE 50 MG TABLET PO SCH (09:12)
[2017-05-02] MEDS: NEUTRA-PHOS 250 MG TABLET PO SCH ×3 (09:12→16:47)
[2017-05-02] MEDS: FINASTERIDE 5 MG TABLET PO SCH (09:12)
[2017-05-02] MEDS: PANTOPRAZOLE 40 MG TABLET PO SCH ×2 (09:12→21:57)
[2017-05-02] MEDS: oxyCODONE ER 10 MG TABLET PO SCH ×2 (09:12→21:57)
[2017-05-02] MEDS: CLOPIDOGREL 75 MG TABLET PO SCH (09:12)
[2017-05-02] MEDS: LIDOCAINE PATCH 5% TOP SCH (09:15)
[2017-05-02] MEDS: FLUTICASONE NASAL SPRAY NAS SCH ×2 (09:15→21:59)
--- NOTE | 2017-05-02 10:06 | PROVIDER PROGRESS NOTE ---
Assessment/Plan - Problem List (1) Dyspnea on exertion Assessment/Plan: acute. worse today and tachycardic. since patient has AFib and continuing to be tachycardic and short of breath will consider PE since patient states he is having some chest discomfort when taking in deep breaths and mouth breathing. CTA completed and negative for PE. respiratory walked patient and oxygen saturation is greater than 90% with room air (2) Sepsis due to other etiology Assessment/Plan: improving. unknown causal organism. blood cultures are negative and sputum negative at this time. continue with levaquin IV and transition to oral prior to leaving for rehab. (3) Obstructive sleep apnea hypopnea, severe Assessment/Plan: chronic. patient continues to desat with walking and with RT treatments. He will need oxygen when walking. He continues to use CPAP at night. weight is an issue when walking. He is still haveing shortness of breath with mouth breathing when up and with exertion. (4) Acute kidney injury superimposed on CKD Assessment/Plan: improved. continue to monitor kidney function. IVF stopped. monitor output of urine (5) Low blood magnesium level Assessment/Plan: resolve. continue to monitor magnesium with daily blood draws (6) Low serum phosphorus for age Assessment/Plan: resolve. continue to monitor phosphorus with daily lab draws (7) Insulin dependent diabetes mellitus with complications Assessment/Plan: chronic. continue with diabetic diet, sliding scale insulin and scheduled insulin with meals, home dosage (8) Atrial fibrillation with RVR Assessment/Plan: chronic. continue with blood pressure medications and give lopressor is HR > 120. patient gets tachycardic with walking (9) Morbid (severe) obesity due to excess calories Assessment/Plan: chronic. continue to educate about diet and ambulation. continue with low fat and low calorie diabetic diet - Current Meds Current Meds: Current Medications Generic Name Dose Route Start Last Admin Trade Name Freq PRN Reason Stop Dose Admin Atorvastatin Calcium 20 mg 05/01/17 09:00 05/02/17 09:11 Lipitor PO 20 mg DAILY SHOAIB Administration Clopidogrel Bisulfate 75 mg 05/01/17 09:00 05/02/17 09:12 Plavix PO 75 mg DAILY SHOAIB Administration Doxazosin Mesylate 12 mg 04/30/17 19:00 05/01/17 21:46 Cardura PO 12 mg HS SHOAIB Administration Enoxaparin Sodium 40 mg 05/01/17 09:00 05/02/17 09:10 Lovenox SUBQ 40 mg DAILY SHOAIB Administration Ferrous Sulfate 325 mg 05/01/17 09:00 05/02/17 09:11 Feosol PO 325 mg DAILY SHOAIB Administration Finasteride 5 mg 05/01/17 09:00 05/02/17 09:12 Proscar PO 5 mg DAILY SHOAIB Administration Fluticasone Propionate 1 sprays 05/01/17 04:15 05/02/17 09:15 Flonase NIMA 1 spray BID SHOAIB Administration Ceftriaxone Sodium 2 gm/ 100 mls @ 200 mls/hr 05/01/17 09:00 05/02/17 09:10 Sodium Chloride IV 200 mls/hr DAILY SHOAIB Administration Levofloxacin 150 mls @ 100 mls/hr 05/01/17 20:00 05/01/17 20:07 Levaquin 750 Mg/150 Ml IV 100 mls/hr Q24H SHOAIB Administration Sodium Chloride 1,000 mls @ 83.333 mls/hr 05/01/17 09:00 05/02/17 09:09 Normal Saline 0.9% IV 83.333 mls/hr .Q12H SHOAIB Administration Insulin Aspart 1 - 9 unit 04/30/17 21:00 05/02/17 08:39 Novolog SUBQ Not Given 0800,1200,1700,2100 [facility] Protocol Insulin Human Isoph/Insulin Regular 57 unit 04/30/17 21:00 05/02/17 09:10 Novolin SUBQ 57 unit BID SHOAIB Administration Lidocaine 1 patch 05/01/17 09:00 05/02/17 09:15 Lidoderm Patch TOP 1 patch DAILY SHOAIB Administration Metoprolol Succinate 75 mg 05/02/17 09:00 05/02/17 09:11 Toprol Xl PO 75 mg BID SHOAIB Administration Oxycodone HCl 10 mg 04/30/17 21:00 05/02/17 09:12 Oxycontin PO 10 mg BID SHOAIB Administration Oxycodone HCl 10 mg 04/30/17 20:07 05/01/17 14:44 Roxicodone PO 10 mg QID PRN Administration PAIN Pantoprazole Sodium 40 mg 04/30/17 21:00 05/02/17 09:12 Protonix PO 40 mg BID SHOAIB Administration Pyridostigmine [place] 60 mg 04/30/17 22:00 05/02/17 05:50 Mestinon PO 60 mg TID SHOAIB Administration Saccharomyces Boulardii 250 mg 05/01/17 08:00 05/02/17 09:12 Florastor PO 250 mg BIDWM SHOAIB Administration Sertraline HCl 50 mg 05/01/17 09:00 05/02/17 09:12 Zoloft PO 50 mg DAILY SHOAIB Administration Sodium Phosphate 250 mg 05/01/17 09:00 05/02/17 09:12 K-Phos Neutral PO 250 mg TIDWM SHOAIB Administration - Lab Result Lab results reviewed: Yes Fish Bone Diagrams: 05/03/17 05:39 05/03/17 05:39 Other Lab Results: Abnormal Lab Results 04/30/17 04/30/17 04/30/17 17:15 17:15 17:15 WBC 15.1 x10^3/uL H x10^3/uL (4.8-10.8) RBC Hgb Hct MPV Neut # 14.1 10^3/uL H 10^3/uL (1.5-6.6) Lymph # 0.4 10^3/uL L 10^3/uL (1.5-3.5) Chloride 98 mmol/L L mmol/L (101-111) Anion Gap 14.0 H (6-13) BUN 24 mg/dL H mg/dL (6-20) Creatinine 1.3 mg/dL H mg/dL (0.6-1.2) Estimated GFR (MDRD) 54 L (>89) Glucose 246 mg/dL H mg/dL (70-100) POC Whole Bld Glucose Glycated Hemoglobin Estim Average Glucose Lactic Acid 2.5 mmol/L H mmol/L (0.5-2.2) Calcium Phosphorus Magnesium 1.6 mg/dL L mg/dL (1.7-2.8) C-Reactive Protein 04/30/17 04/30/17 04/30/17 18:29 19:40 19:40 WBC RBC Hgb Hct MPV Neut # Lymph # Chloride Anion Gap BUN Creatinine Estimated GFR (MDRD) Glucose POC Whole Bld Glucose Glycated Hemoglobin 8.3 % H % (4.6-6.2) Estim Average Glucose 192 H (70-100) Lactic Acid Calcium Phosphorus 2.4 mg/dL L mg/dL (2.5-4.6) Magnesium C-Reactive Protein 2.4 mg/dL H mg/dL (0-1.0) 04/30/17 05/01/17 05/01/17 21:29 05:20 05:20 WBC RBC 4.28 10^6/uL L 10^6/uL (4.70-6.10) Hgb 13.1 g/dL L g/dL (14.0-18.0) Hct 39.5 % L % (42.0-52.0) MPV Neut # 7.8 10^3/uL H 10^3/uL (1.5-6.6) Lymph # 1.1 10^3/uL L 10^3/uL (1.5-3.5) Chloride 100 mmol/L L mmol/L (101-111) Anion Gap BUN 27 mg/dL H mg/dL (6-20) Creatinine 1.4 mg/dL H mg/dL (0.6-1.2) Estimated GFR (MDRD) 49 L (>89) Glucose POC Whole Bld Glucose 220 mg/dL H mg/dL (70 - 100) Glycated Hemoglobin Estim Average Glucose Lactic Acid Calcium 8.3 mg/dL L mg/dL (8.5-10.3) Phosphorus 2.2 mg/dL L mg/dL (2.5-4.6) Magnesium C-Reactive Protein 05/01/17 05/01/17 05/02/17 16:57 20:43 05:27 WBC RBC 4.30 10^6/uL L 10^6/uL (4.70-6.10) Hgb 13.1 g/dL L g/dL (14.0-18.0) Hct 39.8 % L % (42.0-52.0) MPV 7.3 fL L fL (7.4-11.4) Neut # Lymph # 1.0 10^3/uL L 10^3/uL (1.5-3.5) Chloride Anion Gap BUN Creatinine Estimated GFR (MDRD) Glucose POC Whole Bld Glucose 121 mg/dL H mg/dL 142 mg/dL H mg/dL (70 - 100) (70 - 100) Glycated Hemoglobin Estim Average Glucose Lactic Acid Calcium Phosphorus Magnesium C-Reactive Protein 05/02/17 05/02/17 05:27 11:47 WBC RBC Hgb Hct MPV Neut # Lymph # Chloride 100 mmol/L L mmol/L (101-111) Anion Gap BUN 22 mg/dL H mg/dL (6-20) Creatinine Estimated GFR (MDRD) 65 L (>89) Glucose POC Whole Bld Glucose 122 mg/dL H mg/dL (70 - 100) Glycated Hemoglobin Estim Average Glucose Lactic Acid Calcium 8.1 mg/dL L mg/dL (8.5-10.3) Phosphorus Magnesium C-Reactive Protein - EKG Results EKG Interpreted Independently: Yes - Diagnostic Imaging Results Diagnostic Imaging Results: positive: Prelim report reviewed Diagnostic Imaging Results Comments: CTA of chest for PE Impression: negative for PE and chest is clear, no infiltrates or effusions - Additional Planning Condition/Complexity: Stable My Orders: My Active Orders 05/01/17 20:00 levoFLOXacin 750 MG/150 ML [Levaquin 750 mg/150 ml] 150 ml IV Q24H 05/01/17 23:30 CUL, RESPIRATORY [RM] Routine 05/03/17 05:00 BMP - BASIC METABOLIC PANEL [CHEM] DAILYLAB CBC - COMP BLD CT W/AUTO DIFF [HEME] DAILYLAB Consult/Specialty: OT, PT Plan Discussed with:: Patient, Spouse Time Spent: 31-60 minutes Additional Planning Notes: Patient is scheduled to go to rehab at [place] tomorrow for deconditioning. He will need oxygen therapy when leaving. He will need PT and OT evaluation and followup. He is high risk for worsening comorbid conditions since he is needing IV medications with high risk for toxicity and additional RT support and care. Subjective - Subjective Patient Reports: Feeling Better, No Complaints, Cough (patient still short of breath with walking and exertion.), Shortness of Breath Nursing Reports: Shortness of Breath Objective Vital Signs: Vital Signs - 24 hr 05/01/17 05/01/17 05/01/17 14:15 16:29 21:00 Temperature 36.8 C Heart Rate 128 H 122 H Heart Rate [ Brachial] Heart Rate [ 128 H Radial] Respiratory 18 20 18 Rate Blood Pressure Blood Pressure [Left Brachial artery] Blood Pressure 140/84 H [Left Radial artery] Blood Pressure [Right Radial artery] O2 Saturation 95 05/01/17 05/02/17 05/02/17 21:50 01:35 01:50 Temperature 36.9 C 36.7 C Heart Rate Heart Rate [ 130 H Brachial] Heart Rate [ 129 H Radial] Respiratory 20 26 H Rate Blood Pressure 110/75 Blood Pressure [Left Brachial artery] Blood Pressure 131/71 H [Left Radial artery] Blood Pressure 124/92 H [Right Radial artery] O2 Saturation 97 96 05/02/17 05/02/17 05/02/17 01:55 02:00 02:06 Temperature Heart Rate Heart Rate [ Brachial] Heart Rate [ 116 H 120 H 121 H Radial] Respiratory Rate Blood Pressure Blood Pressure 105/66 116/76 114/74 [Left Brachial artery] Blood Pressure [Left Radial artery] Blood Pressure [Right Radial artery] O2 Saturation 05/02/17 05/02/17 05/02/17 02:20 02:50 04:37 Temperature 36.7 C Heart Rate Heart Rate [ 117 H 116 H 104 H Brachial] Heart Rate [ Radial] Respiratory 22 Rate Blood Pressure Blood Pressure 105/68 110/72 122/73 [Left Brachial artery] Blood Pressure [Left Radial artery] Blood Pressure [Right Radial artery] O2 Saturation 95 05/02/17 08:58 Temperature 36.5 C Heart Rate Heart Rate [ 96 Brachial] Heart Rate [ Radial] Respiratory 24 Rate Blood Pressure Blood Pressure [Left Brachial artery] Blood Pressure 105/76 [Left Radial artery] Blood Pressure [Right Radial artery] O2 Saturation 97 Oxygen O2 Source CPAP I&O (Last 24 Hrs): Intake and Output Totals x24h 04/30/17 05/01/17 05/02/17 23:59 23:59 23:59 Intake Total 1000 4471 1363 Output Total 150 Balance 1000 4471 1213 General: Alert, Oriented x3, Cooperative, No acute distress HEENT: PERRLA Neck: Supple, No JVD Lymphatic: no adenopathy Neuro: Alert, CN 2-12 Grossly Intact, Oriented Times 3 Cardiovascular: Normal S1, Normal S2, No murmurs, Other (tachycardic with exertion. patient has had an increase in his metoprolol and still remains tachycardic with exertion. He states he is always this way) Respiratory: Chest non-tender, No respiratory distress, Other (diminished with some mild rales in bases) Abdomen: Normal bowel sounds, Soft, No masses Rectal: Stool - Heme NEG Extremities: No clubbing, No cyanosis, Normal pulses, No tenderness/swelling, Other (bilateral lower extremity edema) Skin: No rashes, No breakdown, No significant lesion - Results Results: Laboratory Results WBC 7.3 x10^3/uL (4.8-10.8) 05/02/17 05:27 RBC 4.30 10^6/uL (4.70-6.10) L 05/02/17 05:27 Hgb 13.1 g/dL (14.0-18.0) L 05/02/17 05:27 Hct 39.8 % (42.0-52.0) L 05/02/17 05:27 MCV 92.5 fL (80.0-94.0) 05/02/17 05:27 MCH 30.4 pg (27.0-31.0) 05/02/17 05:27 MCHC 32.8 g/dL (32.0-36.0) 05/02/17 05:27 RDW 14.8 % (12.0-15.0) 05/02/17 05:27 Plt Count 136 10^3/uL (130-450) 05/02/17 05:27 MPV 7.3 fL (7.4-11.4) L 05/02/17 05:27 Neut # 5.4 10^3/uL (1.5-6.6) 05/02/17 05:27 Lymph # 1.0 10^3/uL (1.5-3.5) L 05/02/17 05:27 [place] # 0.8 10^3/uL (0.0-1.0) 05/02/17 05:27 Eos # 0.1 10^3/uL (0.0-0.7) 05/02/17 05:27 Baso # 0.0 10^3/uL (0.0-0.1) 05/02/17 05:27 Absolute Nucleated RBC 0.00 x10^3/uL 05/02/17 05:27 Nucleated RBCs 0.0 /100WBC 05/02/17 05:27 Manual Slide Review Indicated 04/30/17 17:15 Platelet Estimate NORMAL (130-450,000) (NORMAL) 04/30/17 17:15 RBC Morph Micro Appear NORMAL APPEARANCE (NORMAL) 04/30/17 17:15 Sodium 137 mmol/L (135-145) 05/02/17 05:27 Potassium 3.5 mmol/L (3.5-5.0) 05/02/17 05:27 Chloride 100 mmol/L (101-111) L 05/02/17 05:27 Carbon Dioxide 27 mmol/L (21-32) 05/02/17 05:27 Anion Gap 10.0 (6-13) 05/02/17 05:27 BUN 22 mg/dL (6-20) H 05/02/17 05:27 Creatinine 1.1 mg/dL (0.6-1.2) 05/02/17 05:27 Estimated GFR (MDRD) 65 (>89) L 05/02/17 05:27 Glucose 71 mg/dL (70-100) 05/02/17 05:27 POC Whole Bld Glucose 100 mg/dL (70 - 100) 05/02/17 07:43 Glycated Hemoglobin 8.3 % (4.6-6.2) H 04/30/17 18:29 Estim Average Glucose 192 (70-100) H 04/30/17 18:29 Lactic Acid 2.5 mmol/L (0.5-2.2) H 04/30/17 17:15 Calcium 8.1 mg/dL (8.5-10.3) L 05/02/17 05:27 Phosphorus 4.2 mg/dL (2.5-4.6) 05/02/17 05:27 Magnesium 1.9 mg/dL (1.7-2.8) 05/01/17 05:51 Total Bilirubin 1.0 mg/dL (0.2-1.0) 04/30/17 17:15 AST 29 IU/L (10-42) 04/30/17 17:15 ALT 24 IU/L (10-60) 04/30/17 17:15 Alkaline Phosphatase 59 IU/L (42-121) 04/30/17 17:15 Total Creatine Kinase 184 IU/L (22-269) 05/01/17 00:30 Troponin I < 0.04 ng/mL (<0.49) 05/01/17 00:30 C-Reactive Protein 2.4 mg/dL (0-1.0) H 04/30/17 19:40 B-Natriuretic Peptide 23 pg/mL (5-100) 04/30/17 17:15 Total Protein 7.6 g/dL (6.7-8.2) 04/30/17 17:15 Albumin 3.8 g/dL (3.2-5.5) 05/01/17 05:20 Globulin 3.2 g/dL (2.1-4.2) 04/30/17 17:15 Albumin/Globulin Ratio 1.4 (1.0-2.2) 04/30/17 17:15 Lipase 23 U/L (22-51) 04/30/17 17:15 Influenza A (Rapid) Negative (Negative) 04/30/17 22:10 Influenza B (Rapid) Negative (Negative) 04/30/17 22:10 Influenza Types A,B Ag - 04/30/17 22:10 - Procedures Procedures: Procedures OTHER ENDOSCOPY OF SM INTEST (09/09/13) PACKED CELL TRANSFUSION (09/09/13) SUTURE ENTROPION REPAIR (01/17/15)
[2017-05-02] MEDS: ALBUTEROL NEB 2.5 MG/3 ML INH PRN ×2 (11:41→20:13)
--- NOTE | 2017-05-02 13:40 | Discharge Plan ---
Discharge Plan Disposition: 03 [facility] DC/Xfer Condition: Good Prescriptions: Potassium Chloride [K-Dur] 40 meq PO DAILYWM #30 tablet Levofloxacin [Levaquin] 750 mg PO DAILY #7 tablet Levofloxacin [Levaquin] 750 mg PO DAILY #7 tablet Lidocaine Patch 5% [Lidoderm Patch] 1 each TOP DAILY #30 patch Lidocaine Patch 5% [Lidoderm Patch] 1 each TOP DAILY #30 patch oxyCODONE ER [OxyCONTIN] 10 mg PO QPM PRN #30 tablet PRN Reason: Pain oxyCODONE ER [OxyCONTIN] 10 mg PO BID #30 tablet oxyCODONE ER [OxyCONTIN] 10 mg PO BID #30 tablet oxyCODONE [Roxicodone] 10 mg PO Q4H PRN #28 tablet PRN Reason: Pain Metoprolol Succinate [Toprol Xl] 100 mg PO BID #60 tablet Diet: Diabetic Activity Restrictions: Activity as Tolerated Shower Restrictions: No Driving Restrictions: No Assistance Devices: Walker, Cane Weight Bearing: Full Weight Instruction Topics: Diabetes Fdc Complications, Diabetes Resources Additional Instructions or Follow Up instructions: Please see Rehab instructions for further instructions Please continue on home medications as prescribed. Please eat a diabetic heart healthy low calorie diet. You need to lose weight and this will help your oxygen saturation. You need to eat no more than 60carb throughout the day. Limit calories to 1600- 1800 a day for weight loss. Please walk with oxygen 2 liters. continue to wear your CPAP at night and when you are napping. You will need to followup with your primary care provider and pulmonololgist when you finish in rehab. Activity should be as tolerated and as often as possible. walking will help to strengthen your heart and lungs Follow-Up Care: Outpatient Rehab - PT (after finishing in rehab if needed), Outpatient Rehab - OT No Smoking: If you smoke, Please STOP! Call for help. Follow-up with: Stacey Thao MD [Primary Care Provider] -
[2017-05-02] MEDS ORDERED: IOPAMIDOL-300 100 ML VIAL IVP ONE (14:44)
--- NOTE | 2017-05-02 15:09 | CT Preliminary Report ---
Exam: CT Chest Angio (PE) IMPRESSION: 1. Suboptimal bolus timing limits image quality. No pulmonary emboli seen to the level of the proxima l segmental arteries. 2. Clear lungs. 3. Postsurgical changes of CABG. [facility] SITE ID: [id number]
--- NOTE | 2017-05-02 15:11 | CT Report ---
EXAM: CT ANGIOGRAM CHEST EXAM DATE: 05/02/2017 02:49 PM. CLINICAL HISTORY: Shortness of breath, tachycardia COMPARISON: Chest radiograph 04/30/2017. No prior CT of the chest is available for comparison.. TECHNIQUE: Routine helical imaging was performed through the chest in the pulmonary arterial phase. I V Contrast: 100 mL Isovue 300. Reconstructions: Coronal 3-D MIP reconstructions.Sagittal and coronal. In accordance with CT protocol optimization, one or more of the following dose reduction techniques w ere utilized for this exam: automated exposure control, adjustment of mA and/or KV based on patient s ize, or use of iterative reconstructive technique. FINDINGS: Pulmonary Arteries: Diagnostic quality: Slightly suboptimal opacification due to bolus timing. Adequate through the proxi mal segmental arteries. No evidence for acute or chronic pulmonary emboli. Nonocclusive pulmonary emb tirso in the distal segmental arteries and subsegmental pulmonary emboli cannot be excluded on the basi s of this examination. There is no reflux of contrast material in the IVC. Lungs/Pleura: No consolidation, nodules, or edema. No effusions or pneumothorax. Mediastinum: Postsurgical changes of CABG. Heavy calcification of the [place] coronary arteries. Ther e is no interventricular septal bowing. No cardiac enlargement or adenopathy. Thoracic Aorta: Normal in course and caliber. Mild atherosclerotic vascular calcification. Upper Abdomen: Unremarkable. Other: Mild degenerative changes in the spine. Numerous destructive osseous lesion. IMPRESSION: 1. Suboptimal bolus timing limits image quality. No pulmonary emboli seen to the level of the proxima l segmental arteries. 2. Clear lungs. 3. Postsurgical changes of CABG. [facility] Referring Provider Line: [phone] SITE ID: [id number]
[2017-05-02] MEDS: oxyCODONE 5 MG TABLET PO PRN (19:58)
[2017-05-02] MEDS: DOXAZOSIN 4 MG TABLET PO SCH (21:56)
[2017-05-02] MEDS ORDERED: METOPROLOL SUCCINATE 50 MG TABLET PO SCH (23:29)
[2017-05-03] MEDS: oxyCODONE 5 MG TABLET PO PRN (03:06)
[2017-05-03] MEDS: PYRIDOSTIGMINE BROMIDE 60 MG TABLET PO SCH (05:41)
[2017-05-03 06:08] LABS: BASOPHILS % (AUTO) 0.3 %; EOSINOPHILS # (AUTO) 0.2 10^3/uL (0.0-0.7); EOSINOPHILS % (AUTO) 1.8 %; HCT - HEMATOCRIT 38.4 % (42.0-52.0); HGB - HEMOGLOBIN 12.6 g/dL (14.0-18.0); LYMPHOCYTES # (AUTO) 1.4 10^3/uL (1.5-3.5); LYMPHOCYTES % (AUTO) 17.2 %; MEAN CORPUSCULAR HGB CONC 32.8 g/dL (32.0-36.0); MEAN CORPUSCULAR VOLUME 91.5 fL (80.0-94.0); MEAN PLATELET VOLUME 7.3 fL (7.4-11.4); MONOCYTES # (AUTO) 0.9 10^3/uL (0.0-1.0); MONOCYTES % (AUTO) 10.6 %; NEUTROPHILS # (AUTO) 5.8 10^3/uL (1.5-6.6); NEUTROPHILS % (AUTO) 70.1 %; NUCLEATED RED BLOOD CELLS AUTO 0.1 /100WBC; RED BLOOD COUNT 4.19 10^6/uL (4.70-6.10); RED CELL DISTRIBUTION WIDTH 14.8 % (12.0-15.0); UNCORRECTED WHITE BLOOD COUNT 8.3 x10^3/uL; WHITE BLOOD COUNT 8.3 x10^3/uL (4.8-10.8)
[2017-05-03 06:28] LABS: CALCIUM 7.8 mg/dL (8.5-10.3); POTASSIUM 3.1 mmol/L (3.5-5.0)
[2017-05-03] MEDS ORDERED: METOPROLOL SUCCINATE 25 MG TABLET PO ONE (07:01)
[2017-05-03] MEDS ORDERED: METOPROLOL SUCCINATE 50 MG TABLET PO ONE (07:04)
[2017-05-03] MEDS: ALBUTEROL NEB 2.5 MG/3 ML INH PRN (07:44)
[2017-05-03] MEDS ORDERED: POTASSIUM CHLORIDE 20 MEQ TABLET PO SCH (08:00)
[2017-05-03 08:25] VITALS: BP 120/80
[2017-05-03] MEDS ORDERED: METOPROLOL SUCCINATE 50 MG TABLET PO SCH (09:00)
[2017-05-03] MEDS: INSULIN ASPART 300 UNIT/3 ML PEN SUBQ SCH (10:04)
[2017-05-03] MEDS: FINASTERIDE 5 MG TABLET PO SCH (10:09)
[2017-05-03] MEDS: oxyCODONE ER 10 MG TABLET PO SCH (10:09)
[2017-05-03] MEDS: CLOPIDOGREL 75 MG TABLET PO SCH (10:10)
[2017-05-03] MEDS: NEUTRA-PHOS 250 MG TABLET PO SCH (10:10)
[2017-05-03] MEDS: SERTRALINE 50 MG TABLET PO SCH (10:10)
[2017-05-03] MEDS: FERROUS SULFATE 325 MG TABLET PO SCH (10:10)
[2017-05-03] MEDS: PANTOPRAZOLE 40 MG TABLET PO SCH (10:10)
[2017-05-03] MEDS: ATORVASTATIN 10 MG TABLET PO SCH (10:11)
[2017-05-03] MEDS: cefTRIAXone 2 GM in SODIUM CHLORIDE 0.9% MINIBAG 100 ML IV SCH (10:14)
[2017-05-03] MEDS: SACCHAROMYCES BOULARDII 250 MG CAPSULE PO SCH (10:14)
[2017-05-03] MEDS: ENOXAPARIN 40 MG/0.4 ML SYRINGE SUBQ SCH (10:15)
[2017-05-03] MEDS: INSULIN 70/30 HUMAN 100 UNIT/1 ML 10 ML MDV SUBQ SCH (10:16)
[2017-05-03] MEDS: FLUTICASONE NASAL SPRAY NAS SCH (10:16)
[2017-05-03] MEDS: LIDOCAINE PATCH 5% TOP SCH (10:17)
--- NOTE | 2017-05-03 12:30 | DISCHARGE SUMMARY ---
DATE OF ADMISSION: 04/30/2017 DATE OF DISCHARGE: 05/03/2017 ADMITTING DIAGNOSIS: Acute dyspnea with possible bronchitis versus new developing pneumonia, unknown causal organism. DISCHARGE DIAGNOSES: 1. Acute dyspnea with hypoxia secondary to obstructive sleep apnea. 2. Chronic morbid obesity with dyspnea on exertion. 3. Low magnesium serum level. 4. Acute kidney injury with mild dehydration. 5. Chronic myasthenia gravis. 6. Gastroesophageal reflux disease. 7. 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 8. 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 9. Benign prostatic hypertrophy with chronic urinary retention. 10. Acute hypokalemia with loss of potassium. 11. Acute on chronic tachycardia, unspecified. 12. 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 DISCHARGE PROVIDER: Stacey Burnett NP CONSULTATIONS: Physical and Occupational Therapy PROCEDURES: 1. CTA of chest and thorax. Impression is suboptimal bolus timing limits, image quality, no pulmonary emboli seen to the level of the proximal segmental artery clear lungs, postsurgical changes of CABG. No infiltrate, effusion or pneumothorax. No consolidation in the lungs. Postsurgical changes of CABG with heavy calcification of the [place] coronary arteries. 2. Chest x-ray which shows mild cardiomegaly and small right posterior lung base infiltrate. HOSPITAL COURSE AND TREATMENT: The patient is a morbidly obese 76-year-old male who presented through the ER with a complaint of significant congestion and shortness of breath x2 to 3 weeks with intermi ttent wheezing. He had been on an antibiotic regime of Augmentin for 2 weeks and prednisone prior to coming into the ER. He had been using his albuterol and Pulmicort inhalers as prescribed. He was note d to have some mild cough as well. When the patient presented to the ER, he had been feeling much wea ker, had shortness of breath and was lightheaded. The patient denied fever or chills at that time. Ho peña, when he was in the ER, started having chills, nasal congestion, productive cough and mild bila teral edema. He did have an underlying history of COPD and asthma, as well as bronchitis with no hist ory of atrial fibrillation or flutter. He had been seen 2 weeks prior for bronchitis with wheezing in the clinic. The patient has underlying history of myasthenia gravis and does frequently get fatigued and weak. According to his , he had been weaker than normal. His also stated that he had mo re congestion and more pedal edema at the time of admission. The patient was seen by hospitalist team and admitted for further evaluation for possible pneumonia which was noted to be on x-ray. He was pl aced on Rocephin and azithromycin. Over the course of inpatient stay, his white count was monitored, starting at 15.1 on the day of discharge. It had been 2 days less than 10. The patient was transition ed off of Rocephin and azithromycin to Levaquin IV. He is being sent to a custodial facility wi th continuation of oral Levaquin for coverage. The patient had low magnesium level at the time of adm ission and he was treated with magnesium sulfate IV. Magnesium level did improve from 1.6 to greater than 2.0. The patient did continue on respiratory therapy treatments and supplemental oxygen. When he came in, he was dyspneic with an oxygen level of below 90 on room air, but with 2 liters at 95%. The patient did have some tachycardia at 115 and did remain tachycardic throughout inpatient stay, which is his baseline. He did stay on metoprolol which has been increased during his stay with no resoluti on of his heart rate. The patient also has severe obstructive sleep apnea. He did continue to wear hi s CPAP, however, it had not been titrated in quite some time, which still left him feeling short of b reath, specifically when he was up and moving around. On the day of discharge, Respiratory Therapy wo rked with him for walking pulse oximetry and he was noted to be 96% on room air. He did drop to aroun d 90 with severe exertion, but then rebounded once he was sitting down greater than 95% on room air. The patient does have severe morbid obesity with a BMI greater than 45, and a large pannus which was contributing to his shortness of breath with exertion. For his CAD, the patient continued on Cardura, Plavix and Dyazide. For his iron deficiency anemia, he continued on ferrous sulfate. For his BPH, he continued on finasteride. For GERD, he continued on Prilosec. For his uncontrolled diabetes mellitus with complications. For his diabetes mellitus, he is continued on Actos and sliding scale insulin, d iabetic diet and also continued on Novolin twice a day at 57 units. His blood sugar was noted to be b elow 100 on the last day of discharge so his Novolin was held that morning. For his hyperlipidemia, mino claire continued on Zocor. For his myasthenia gravis, he continued on Mestinon. For his depression, he con tinued on Zoloft and for the osteoarthritis and chronic back pain. He continued on OxyContin; both sc heduled and p.r.n. The patient did have a POLST on file and he remained FULL CODE during admission. H is Claritin was held and vitamin E was held during course of inpatient treatment. The patient probabl y did have underlying allergies, specifically with certain food items which could be contributing to the congestion that he continues to have. Recommendation would be for the patient to followup outpati ent with an customer sales specialist to see if this is contributory to the continued secretions and bronchi tis. On the day of discharge, the patient was to be transferred for deconditioning to [place]. The p bran was in agreement with this and his was notified of his discharge and transition. His asia l signs remained stable at the time of discharge with a temperature of 36.6, heart rate of 120, blood pressure 120/80 and respirations were 18, and oxygen saturation 96% on room air. The patient will pr obably need a repeat echocardiogram; however, one has recently been done within the last year. He lim s have worsening hypertrophy, probably contributed to the obstructive sleep apnea and need for adjust ment of the titration at night when he sleeps. PHYSICAL EXAMINATION: CONSTITUTIONAL: The patient is alert, in no acute distress. EYES: Pupils are equal, round and reactive to light and accommodation. Conjunctivae and sclerae was n onicteric, not injected. ENT: Nares are patent, mild nasal discharge. OROPHARYNX: No masses, exudates or lesions. Mucous membranes were dry. NECK: Supple. No thyromegaly. CARDIOVASCULAR: Tachycardic rate S1, S2 noted. No S3, no gallops, murmurs or rubs. Normal PMI. No JVD . RESPIRATORY: Breath sounds are clear bilaterally to auscultation and percussion, no retractions, nasa l flaring, or increased work of breathing. The patient was a mouth breather with exertional breathing . SKIN: Warm, dry, intact. Normal turgor. No evidence of rash, lesions, or cellulitis. GASTROINTESTINAL: Obese, pannus and abdomen with no masses palpated. No guarding or rebound. Bowel so unds noted. GENITOURINARY: No CVA tenderness. PSYCHIATRIC: Behavior is appropriate, pleasant mood. No suicidal ideation. NEUROLOGIC: He was alert. GCS 15. Cranial nerves 2-12 were intact. Sensory was intact. MUSCULOSKELETAL: Extremities, the patient had full range of upper and lower extremities with palpable pulses to the lower extremities and mild pedal edema bilaterally. HEMATOLOGIC: No active bleeding. He was hemodynamically stable. LYMPHATICS: No cervical, axillary or supraclavicular lymphadenopathy noted. MEDICATIONS AT TIME OF DISCHARGE: 1. Levaquin 750 mg p.o. daily. 2. Actos. 3. Ferrous sulfate. 4. Advair Diskus. 5. Lisinopril. 6. Mestinon. 7. Metoprolol tartrate 50 mg p.o. tablets b.i.d. 8. Insulin 70/30. 9. Novolin 59 units subcutaneous b.i.d. 10. Nystatin. 11. Plavix. 12. Prilosec. 13. Albuterol sulfate inhaler. 14. Testosterone cypionate 2 mL IM every 28 days. 15. Theragran 1 tab p.o. daily. 16. Triamterene/hydrochlorothiazide 1 tab p.o. daily. 17. Simvastatin 40 mg p.o. at night. 18. Zoloft 50 mg p.o. daily. 19. Atrovent. 20. Cardura 12 mg p.o. at night. 21. Flonase. 22. K-Dur 40 mEq p.o. daily. 23. Lidoderm patch 5%. 24. OxyContin 10 mg p.o. at night p.r.n. 25. OxyContin extended release 10 mg p.o. b.i.d. 26. Oxycodone on 10 mg p.o. q.4h. p.r.n. 27. Toprol-XL L 100 mg p.o. b.i.d. INSTRUCTIONS FOR FOLLOWUP AND DISCHARGE: 1. Activity to be as tolerated. The patient will only need oxygen as needed p.r.n. when he gets signi ficantly short of breath with exertion. His oxygen saturations usually remain greater than 92% on cynthia m air, even with exertion. Continue to use your inhalers as prescribed. Continue to take your Levaqui n antibiotic until gone. Take frequent rest breaks as needed and get plenty of sleep night with using CPAP. He will need to followup with pulmonary to have CPAP re-evaluated and re-titrated. 2. Diet: The patient needs to continue on a diabetic low calorie, low fat diet. He understands that h is weight is contributing to his exertional shortness of breath. He has been recommended to get out a nd get exercise as much as tolerated. 3. Followup: The patient understands he is to followup with his primary care provider within a week o f discharge. He understands he needs to followup with pulmonary for reevaluation of his CPAP machine. He will probably need a refollowup for echocardiogram at that time. 4. The patient was discharged with pain medications and a prescription for Levaquin. 5. The patient was discharged to go [facility] to [place] for deconditioning and rehabilitation. Family was notified of the patient's status. 6. STATUS: The patient remained FULL CODE STATUS at time of discharge. Time spent on discharge instructions, planning and assessment was 55 minutes. JOB #: [id number] EXT JOB #:[id number]
== END 2017-05-03 11:31 | DRG 871 ==
LOC: EDUNIT# → ED 15:35 → MS 18:06
PROVIDERS: ADMIT Nurse Practitioner; ATTEND Nurse Practitioner
DX: A41.9 Sepsis, unspecified organism (principal); J18.1 Lobar pneumonia, unspecified organism; I10 Essential (primary) hypertension; J18.9 Pneumonia, unspecified organism; G47.30 Sleep apnea, unspecified; Z68.42 Body mass index [BMI] 45.0-49.9, adult; I13.0 Hypertensive heart and chronic kidney disease with heart failure and stage 1 through stage 4 chronic kidney disease, or unspecified chronic kidney disease; N17.9 Acute kidney failure, unspecified; N39.498 Other specified urinary incontinence; R35.0 Frequency of micturition; H35.30 Unspecified macular degeneration; H91.90 Unspecified hearing loss, unspecified ear; G47.33 Obstructive sleep apnea (adult) (pediatric); E66.01 Morbid (severe) obesity due to excess calories; M54.9 Dorsalgia, unspecified; I50.9 Heart failure, unspecified; Z85.828 Personal history of other malignant neoplasm of skin; I48.91 Unspecified atrial fibrillation; R00.0 Tachycardia, unspecified; G70.00 Myasthenia gravis without (acute) exacerbation; E11.22 Type 2 diabetes mellitus with diabetic chronic kidney disease; Z87.891 Personal history of nicotine dependence; N18.3 Chronic kidney disease, stage 3 (moderate); E86.0 Dehydration; E11.65 Type 2 diabetes mellitus with hyperglycemia; J44.9 Chronic obstructive pulmonary disease, unspecified; E83.42 Hypomagnesemia; E83.39 Other disorders of phosphorus metabolism; G89.29 Other chronic pain; M54.5 Low back pain; M19.90 Unspecified osteoarthritis, unspecified site; F17.211 Nicotine dependence, cigarettes, in remission; F32.9 Major depressive disorder, single episode, unspecified; D50.9 Iron deficiency anemia, unspecified; E78.5 Hyperlipidemia, unspecified; I25.10 Atherosclerotic heart disease of native coronary artery without angina pectoris; K21.9 Gastro-esophageal reflux disease without esophagitis; Z71.3 Dietary counseling and surveillance; N40.1 Benign prostatic hyperplasia with lower urinary tract symptoms; R33.8 Other retention of urine; R06.09 Other forms of dyspnea; Z79.4 Long term (current) use of insulin; Z95.1 Presence of aortocoronary bypass graft; Z79.891 Long term (current) use of opiate analgesic; Z79.899 Other long term (current) drug therapy; Z79.02 Long term (current) use of antithrombotics/antiplatelets; Z86.73 Personal history of transient ischemic attack (TIA), and cerebral infarction without residual deficits
CPT/HCPCS: 36415; 71020; 71275; 80048; 80053; 80069; 82550; 83036; 83605; 83690; 83735; 83880; 84100; 84484; 85025; 86140; 87040; 87070; 87205; 87275; 87276; 87493; 93005; 93010; 94640; 96361; 96365; 96375; 99284

== ENCOUNTER 2017-08-11 16:01 | Outpatient (CLI) | payer MEDICARE, OTHER ==
[2017-08-11 16:33] LABS: BASOPHILS # (AUTO) 0.1 10^3/uL (0.0-0.1); BASOPHILS % (AUTO) 0.8 %; EOSINOPHILS # (AUTO) 0.2 10^3/uL (0.0-0.7); EOSINOPHILS % (AUTO) 1.8 %; HCT - HEMATOCRIT 35.8 % (42.0-52.0); LYMPHOCYTES # (AUTO) 1.4 10^3/uL (1.5-3.5); LYMPHOCYTES % (AUTO) 15.9 %; MEAN CORPUSCULAR HEMOGLOBIN 30.9 pg (27.0-31.0); MEAN CORPUSCULAR HGB CONC 33.6 g/dL (32.0-36.0); MONOCYTES # (AUTO) 0.7 10^3/uL (0.0-1.0); MONOCYTES % (AUTO) 7.9 %; NEUTROPHILS # (AUTO) 6.6 10^3/uL (1.5-6.6); NEUTROPHILS % (AUTO) 73.6 %; RED BLOOD COUNT 3.89 10^6/uL (4.70-6.10); RED CELL DISTRIBUTION WIDTH 15.9 % (12.0-15.0); UNCORRECTED WHITE BLOOD COUNT 8.9 x10^3/uL; WHITE BLOOD COUNT 8.9 x10^3/uL (4.8-10.8)
[2017-08-11 16:40] LABS: CALCIUM 9.1 mg/dL (8.5-10.3); CREATININE 1.3 mg/dL (0.6-1.2); POTASSIUM 4.1 mmol/L (3.5-5.0)
[2017-08-11 16:55] LABS: HEMOGLOBIN A1C 0.62 g/dL
== END 2017-08-11 16:02 | disposition home or self-care (01) ==
LOC: LAB 16:01
PROVIDERS: ATTEND Internal Medicine
DX: E11.9 Type 2 diabetes mellitus without complications (principal); Z79.899 Other long term (current) drug therapy
CPT/HCPCS: 36415; 80048; 83036; 85025

== ENCOUNTER 2018-02-09 15:59 | Outpatient (CLI) | payer MEDICARE, OTHER ==
[2018-02-09 16:33] LABS: BASOPHILS # (AUTO) 0.1 10^3/uL (0.0-0.1); BASOPHILS % (AUTO) 0.9 %; EOSINOPHILS # (AUTO) 0.2 10^3/uL (0.0-0.7); EOSINOPHILS % (AUTO) 2.4 %; HGB - HEMOGLOBIN 12.4 g/dL (14.0-18.0); LYMPHOCYTES # (AUTO) 1.5 10^3/uL (1.5-3.5); LYMPHOCYTES % (AUTO) 23.7 %; MEAN CORPUSCULAR HEMOGLOBIN 29.2 pg (27.0-31.0); MEAN CORPUSCULAR HGB CONC 32.1 g/dL (32.0-36.0); MEAN PLATELET VOLUME 7.2 fL (7.4-11.4); MONOCYTES # (AUTO) 0.6 10^3/uL (0.0-1.0); MONOCYTES % (AUTO) 9.1 %; NEUTROPHILS % (AUTO) 63.9 %; PLT - PLATELET COUNT 181 10^3/uL (130-450); RED BLOOD COUNT 4.25 10^6/uL (4.70-6.10); RED CELL DISTRIBUTION WIDTH 14.4 % (12.0-15.0); WHITE BLOOD COUNT 6.3 x10^3/uL (4.8-10.8)
[2018-02-09 16:47] LABS: HB2 TOTAL 13.4 g/dL; HEMOGLOBIN A1C 0.88 g/dL; HEMOGLOBIN A1C % 8.2 % (4.6-6.2)
[2018-02-09 16:48] LABS: BILIRUBIN,URINE NEGATIVE (NEGATIVE); GLUCOSE, URINE (UA) NEGATIVE (NEGATIVE); KETONES,URINE (UA) NEGATIVE (NEGATIVE); LEUKOCYTE ESTERASE, URINE TRACE (NEGATIVE); NITRITE,URINE NEGATIVE (NEGATIVE); OCCULT BLOOD,URINE NEGATIVE (NEGATIVE); PH,URINE 5.5 PH (5.0-7.5); PROTEIN,URINE NEGATIVE (NEGATIVE); UROBILINOGEN,URINE 0.2 (NORMAL) E.U./dL (NORMAL)
[2018-02-09 16:48] LABS: ALBUMIN 4.5 g/dL (3.2-5.5); ALBUMIN/GLOBULIN RATIO 1.4 (1.0-2.2); ALKALINE PHOSPHATASE 69 IU/L (42-121); ALT ALANINE AMINOTRANSFERASE 20 IU/L (10-60); AST ASPARTATE AMINOTRANSFERASE 23 IU/L (10-42); BILIRUBIN,TOTAL 0.8 mg/dL (0.2-1.0); BUN - BLOOD UREA NITROGEN 25 mg/dL (6-20); CALCIUM 9.2 mg/dL (8.5-10.3); CARBON DIOXIDE - CO2 26 mmol/L (21-32); CHLORIDE 98 mmol/L (101-111); CHOL/HDL RATIO 3.1 (<5.0); CHOLESTEROL 126 mg/dL; CK- CREATINE KINASE 180 IU/L (22-269); CREATININE 1.1 mg/dL (0.6-1.2); GFR - MDRD 65 (>89); GLUCOSE 134 mg/dL (70-100); HDL CHOLESTEROL 41 mg/dL; LDL CHOLESTEROL,CALCULATED 62 mg/dL; LDL/HDL RATIO 1.5 (<3.6); SODIUM 133 mmol/L (135-145); TOTAL PROTEIN 7.7 g/dL (6.7-8.2); VLDL CHOLESTEROL 23 mg/dL
[2018-02-09 17:03] LABS: BACTERIA,URINE None Seen /HPF (None Seen); CLARITY,URINE CLEAR (CLEAR); RBC,URINE None Seen /HPF (0-5); SQUAMOUS EPITHELIAL CELL,UR NONE SEEN (<= Few)
[2018-02-09 17:54] LABS: CREATININE,URINE 98.8 mg/dL; MICROALBUM/CREATININE RATIO,UR 7.1 ug/mg (<30.0); MICROALBUMIN,URINE 0.7 mg/dL (0-300.0)
[2018-02-09 18:01] LABS: PSA TOTAL 2.857 ng/mL (0.000-2.000)
[2018-02-09 18:06] LABS: THYROID STIMULATING HORMONE 0.94 uIU/mL (0.34-5.60)
== END 2018-02-09 16:00 | disposition home or self-care (01) ==
LOC: LAB 15:59
PROVIDERS: ATTEND Urology
DX: Z79.899 Other long term (current) drug therapy (principal); H91.90 Unspecified hearing loss, unspecified ear; J30.2 Other seasonal allergic rhinitis; J44.9 Chronic obstructive pulmonary disease, unspecified; G47.33 Obstructive sleep apnea (adult) (pediatric); I25.10 Atherosclerotic heart disease of native coronary artery without angina pectoris; I48.92 Unspecified atrial flutter; K21.9 Gastro-esophageal reflux disease without esophagitis; Z87.19 Personal history of other diseases of the digestive system; N40.0 Benign prostatic hyperplasia without lower urinary tract symptoms; M19.90 Unspecified osteoarthritis, unspecified site; G70.00 Myasthenia gravis without (acute) exacerbation; E11.9 Type 2 diabetes mellitus without complications; E78.3 Hyperchylomicronemia; E29.1 Testicular hypofunction; D64.9 Anemia, unspecified; F34.1 Dysthymic disorder
CPT/HCPCS: 36415; 80053; 80061; 81001; 82043; 82550; 82570; 82607; 83036; 83721; 84153; 84403; 84443; 85025; 87086

== ENCOUNTER 2018-08-17 16:21 | Outpatient (CLI) | payer MEDICARE, OTHER ==
[2018-08-17 16:45] LABS: CALCIUM 9.2 mg/dL (8.5-10.3)
[2018-08-17 20:56] LABS: HB2 TOTAL 13.4 g/dL; HEMOGLOBIN A1C 0.76 g/dL; HEMOGLOBIN A1C % 7.3 % (4.6-6.2)
== END 2018-08-17 16:22 | disposition home or self-care (01) ==
LOC: LAB 16:21
PROVIDERS: ATTEND Internal Medicine
DX: Z79.899 Other long term (current) drug therapy (principal); E11.9 Type 2 diabetes mellitus without complications
CPT/HCPCS: 36415; 80048; 83036

== ENCOUNTER 2019-02-24 16:18 | Outpatient (CLI) | payer MEDICARE, OTHER ==
[2019-02-24 16:33] LABS: BASOPHILS # (AUTO) 0.1 10^3/uL (0.0-0.1); BASOPHILS % (AUTO) 0.7 %; EOSINOPHILS # (AUTO) 0.1 10^3/uL (0.0-0.7); EOSINOPHILS % (AUTO) 1.9 %; HGB - HEMOGLOBIN 13.3 g/dL (14.0-18.0); LYMPHOCYTES # (AUTO) 1.6 10^3/uL (1.5-3.5); LYMPHOCYTES % (AUTO) 21.7 %; MEAN CORPUSCULAR HEMOGLOBIN 30.8 pg (27.0-31.0); MEAN CORPUSCULAR HGB CONC 33.4 g/dL (32.0-36.0); MEAN CORPUSCULAR VOLUME 92.2 fL (80.0-94.0); MEAN PLATELET VOLUME 6.8 fL (7.4-11.4); MONOCYTES # (AUTO) 0.6 10^3/uL (0.0-1.0); MONOCYTES % (AUTO) 7.8 %; NEUTROPHILS # (AUTO) 4.9 10^3/uL (1.5-6.6); NEUTROPHILS % (AUTO) 67.9 %; PLT - PLATELET COUNT 195 10^3/uL (130-450); RED BLOOD COUNT 4.31 10^6/uL (4.70-6.10); RED CELL DISTRIBUTION WIDTH 13.9 % (12.0-15.0); WHITE BLOOD COUNT 7.2 x10^3/uL (4.8-10.8)
[2019-02-24 16:36] LABS: BILIRUBIN,URINE NEGATIVE (NEGATIVE); GLUCOSE, URINE (UA) NEGATIVE (NEGATIVE); KETONES,URINE (UA) NEGATIVE (NEGATIVE); LEUKOCYTE ESTERASE, URINE TRACE (NEGATIVE); NITRITE,URINE NEGATIVE (NEGATIVE); OCCULT BLOOD,URINE NEGATIVE (NEGATIVE); PROTEIN,URINE NEGATIVE (NEGATIVE); UROBILINOGEN,URINE 0.2 (NORMAL) E.U./dL (NORMAL)
[2019-02-24 16:37] LABS: CLARITY,URINE CLEAR (CLEAR)
[2019-02-24 16:43] LABS: BACTERIA,URINE None Seen /HPF (None Seen); RBC,URINE None Seen /HPF (0-5); SQUAMOUS EPITHELIAL CELL,UR NONE SEEN (<= Few)
[2019-02-24 16:57] LABS: CREATININE,URINE 90.7 mg/dL; MICROALBUM/CREATININE RATIO,UR 13.2 ug/mg (<30.0); MICROALBUMIN,URINE 1.2 mg/dL (0-300.0)
[2019-02-24 17:01] LABS: ALT ALANINE AMINOTRANSFERASE 19 IU/L (10-60); AST ASPARTATE AMINOTRANSFERASE 26 IU/L (10-42); BILIRUBIN,TOTAL 0.6 mg/dL (0.2-1.0); BUN - BLOOD UREA NITROGEN 24 mg/dL (6-20); CALCIUM 9.1 mg/dL (8.5-10.3); CARBON DIOXIDE - CO2 29 mmol/L (21-32); CHLORIDE 96 mmol/L (101-111); CREATININE 1.1 mg/dL (0.6-1.2); GFR - MDRD 65 (>89); GLUCOSE 114 mg/dL (70-100); SODIUM 135 mmol/L (135-145)
[2019-02-24 17:02] LABS: ALBUMIN 4.3 g/dL (3.2-5.5); ALBUMIN/GLOBULIN RATIO 1.3 (1.0-2.2); ALKALINE PHOSPHATASE 67 IU/L (42-121); CHOL/HDL RATIO 2.5 (<5.0); CHOLESTEROL 144 mg/dL; CK- CREATINE KINASE 205 IU/L (22-269); HDL CHOLESTEROL 58 mg/dL; LDL CHOLESTEROL,CALCULATED 61 mg/dL; LDL/HDL RATIO 1.1 (<3.6); TOTAL PROTEIN 7.7 g/dL (6.7-8.2); VLDL CHOLESTEROL 25 mg/dL
[2019-02-25 17:21] LABS: HB2 TOTAL 14.6 g/dL; HEMOGLOBIN A1C 0.77 g/dL
== END 2019-02-24 16:19 | disposition home or self-care (01) ==
LOC: LAB 16:18
PROVIDERS: ATTEND Internal Medicine
DX: H91.90 Unspecified hearing loss, unspecified ear (principal); Z79.899 Other long term (current) drug therapy; E11.9 Type 2 diabetes mellitus without complications; J30.2 Other seasonal allergic rhinitis; J44.9 Chronic obstructive pulmonary disease, unspecified; G47.33 Obstructive sleep apnea (adult) (pediatric); I25.10 Atherosclerotic heart disease of native coronary artery without angina pectoris; E78.5 Hyperlipidemia, unspecified; D64.9 Anemia, unspecified
CPT/HCPCS: 36415; 80053; 80061; 81001; 81003; 82043; 82550; 82570; 83036; 83721; 84443; 85025

== ENCOUNTER 2019-03-24 16:00 | Outpatient (CLI) | payer MEDICARE, OTHER | END 2019-03-24 23:59 | disposition home or self-care (01) | LOC: LAB.R 16:00 | PROVIDERS: ATTEND Podiatrist | DX: L60.0 Ingrowing nail (principal) | CPT/HCPCS: 87070; 87205 ==

== ENCOUNTER 2019-05-03 08:00 | Outpatient (CLI) | payer MEDICARE, OTHER | END 2019-05-03 23:59 | disposition home or self-care (01) | LOC: LAB.R 08:00 | PROVIDERS: ATTEND Podiatrist | DX: L03.031 Cellulitis of right toe (principal) | CPT/HCPCS: 87070; 87205 ==

== ENCOUNTER 2020-08-04 16:23 | Outpatient (CLI) | payer MEDICARE, OTHER | END 2020-08-04 16:24 | disposition EMS.NT | LOC: EMS 16:23 | PROVIDERS: ATTEND Surgery | DX: Z03.89 Encounter for observation for other suspected diseases and conditions ruled out (principal) ==

== ENCOUNTER 2021-01-09 23:56 | Outpatient (CLI) | payer MEDICARE, OTHER | END 2021-01-09 23:57 | disposition short-term general hospital (02) | LOC: EMS 23:56 | DX: R06.02 Shortness of breath (principal); R53.1 Weakness; R50.9 Fever, unspecified | CPT/HCPCS: A0425; A0427 ==